=== PATIENT | female | born 1950 | race Caucasian/White ===

== ENCOUNTER → 2018-03-17 08:07 | Outpatient (CLI) | payer MEDICARE, BC, MEDICAID, SELFPAY ==
[2018-03-17 10:03] LABS: Hematocrit 39.4 % (37-47); Hemoglobin 12.8 g/dl (12.0-15.0); Lymphocyte % 19.2 % (19-41); Mean Corp Hgb Conc 32.5 g/gl (32-36); Mean Corpuscular Hgb 31.1 pg (27.0-32.0); Mean Corpuscular Volume 95.9 fL (81-99); Mean Platelet Vol. 10.9 fl (6.2-12.0); Neutrophil % 59.3 % (47-70); Platelet Count 242 K/mm3 (150-450); Red Blood Count 4.11 M/mm3 (4.2-5.4); White Blood Count 3.6 K/mm3 (4.4-11.0)
[2018-03-17 10:04] LABS: Absolute Lymphocyte Count 0.68 X10^3/ul (0.83-4.51); Absolute Neutrophil Count 2.1 X10^3/uL (2.0-7.7); Basophil# 0.05 X10^3/uL; Basophil% 1.4 % (0-1); Eosinophil# 0.46 X10^3/uL; Lymphocyte # 0.68 X10^3/ul (4.0); Monocyte# 0.24 X10^3/uL; Monocyte% 6.8 % (0-10); Neutrophil # 2.11 X10^3/uL (2.7-7.7)
[2018-03-17 10:05] LABS: POSITIVE COUNT NO; POSITIVE DIFFERENTIAL NO; POSITIVE MORPHOLOGY NO
[2018-03-17 10:23] LABS: AST(SGOT) 16 U/L (15-37); Alanine Aminotransfer ALT/SGPT 25 U/L (13-56); Albumin, Serum 3.7 g/dL (3.2-5.0); Alkaline Phosphatase 128 U/L (45-117); Anion Gap 5 (5-15); BUN 12 mg/dL (7-18); BUN/Creat Ratio 11.5 RATIO (10-20); Chloride 106 mmol/L (98-107); Creatinine, Serum 1.04 mg/dL (0.55-1.02); EST Glomerular Filtration Rate 56 mL/min (>60); Est Glom Filt Rate - Afr Amer 68 mL/min (>60); Globulin 3.8 g/dL (2.2-4.2); Glucose 84 mg/dL (74-106); Potassium 4.3 mmol/L (3.5-5.1); Protein, Total 7.5 g/dL (6.4-8.2); Sodium Level 140 mmol/L (136-145)
== END ==
PROVIDERS: Family Provider Family Medicine; PCP Family Medicine; Visit Provider Internal Medicine Rheumatology
DX: M32.9 Systemic lupus erythematosus, unspecified (principal); M18.0 Bilateral primary osteoarthritis of first carpometacarpal joints; M47.897 Other spondylosis, lumbosacral region; M41.9 Scoliosis, unspecified; I63.9 Cerebral infarction, unspecified
CPT/HCPCS: 36415; 80053; 85025

== ENCOUNTER → 2018-09-15 08:10 | Outpatient (CLI) | payer MEDICARE, BC, MEDICAID, SELFPAY ==
[2018-09-15 10:04] LABS: Absolute Lymphocyte Count 0.74 X10^3/ul (0.83-4.51); Basophil# 0.06 X10^3/uL; Basophil% 1.6 % (0-1); Eosinophil# 0.58 X10^3/uL; Eosinophils% 15.9 % (0-5); Hematocrit 40.1 % (37-47); Hemoglobin 13.1 g/dl (12.0-15.0); Lymphocyte # 0.74 X10^3/ul (4.0); Lymphocyte % 20.3 % (19-41); Mean Corp Hgb Conc 32.7 g/gl (32-36); Mean Corpuscular Hgb 31.3 pg (27.0-32.0); Mean Corpuscular Volume 95.7 fL (81-99); Mean Platelet Vol. 11.4 fl (6.2-12.0); Monocyte# 0.25 X10^3/uL; Monocyte% 6.9 % (0-10); Platelet Count 206 K/mm3 (150-450); RBC Distribution Width CV 11.9 % (11.6-14.6); RBC Distribution Width SD 40.9 fl (35.1-43.9); Red Blood Count 4.19 M/mm3 (4.2-5.4); White Blood Count 3.6 K/mm3 (4.4-11.0)
[2018-09-15 10:06] LABS: POSITIVE COUNT NO; POSITIVE DIFFERENTIAL NO; POSITIVE MORPHOLOGY NO
[2018-09-15 10:25] LABS: ALB/GLOB Ratio 1.1 RATIO (0.9-2.4); AST(SGOT) 13 U/L (15-37); Alanine Aminotransfer ALT/SGPT 18 U/L (13-56); Alkaline Phosphatase 92 U/L (45-117); BUN 14 mg/dL (7-18); BUN/Creat Ratio 13.3 RATIO (10-20); Calcium,Total 9.5 mg/dL (8.5-10.1); Creatinine, Serum 1.05 mg/dL (0.55-1.02); EST Glomerular Filtration Rate 56 mL/min (>60); Est Glom Filt Rate - Afr Amer 67 mL/min (>60); Globulin 3.8 g/dL (2.2-4.2); Glucose 94 mg/dL (74-106); Protein, Total 7.8 g/dL (6.4-8.2); Sodium Level 140 mmol/L (136-145)
[2018-09-15 10:26] LABS: Anion Gap 10 (5-15); Chloride 102 mmol/L (98-107); Potassium 4.3 mmol/L (3.5-5.1)
== END ==
PROVIDERS: Family Provider Family Medicine; PCP Family Medicine; Referring Provider Internal Medicine Rheumatology; Visit Provider Internal Medicine Rheumatology
DX: M32.9 Systemic lupus erythematosus, unspecified (principal); M18.0 Bilateral primary osteoarthritis of first carpometacarpal joints; M47.897 Other spondylosis, lumbosacral region; M41.9 Scoliosis, unspecified; I63.9 Cerebral infarction, unspecified
CPT/HCPCS: 36415; 80053; 85025

== ENCOUNTER 2019-02-12 12:46 | Emergency (ER) | payer MEDICARE, BC, MEDICAID, SELFPAY ==
[2019-02-12 12:47] VITALS: BP 128/80; PULSE 97; RESP 17; TEMP 36.8; O2SAT 97; BMI 26.6
--- NOTE | 2019-02-12 12:53 | ED.VIS.GEN ---
History of Present Illness Chief Complaint: Upper Extremity Injury Detail of Chief Complaint: Posterior left arm pain after raking leaves yesterday Informant: Patient Onset: Yesterday Context: Sudden Onset Timing: Continuous Quality: Aching Location: Posterior left arm Current Severity: Mild Maximum Severity: Moderate Worsened by: Palpation and movement Relieved by: Rest Associated Symptoms: None Narrative: Patient seen at urgent care and sent to the ER for cardiac concerns. Patient has no chest pain, no complaint of dyspnea, dyspnea on exertion, orthopnea PND. She has significant arthritis and has waxing waning pain in her extremities. This episode started after waking yesterday. She denies paresthesia, anesthesia or motor weakness. There is no history of direct trauma. Prior similar symptoms: No Recent Illness/Hospitalization: No - Past Medical History (1) Arthritis Status: Chronic Past Medical History - Allergies and Home Meds Allergies/Adverse Reactions: Allergies No Known Allergies Allergy (Verified 02/12/19 12:46) Primary Care Physician: Sd Garcia MD [Primary Care Provider] - Prior records reviewed: No Lives: Spouse/ Significant Other Smoking Status: Never smoker Review of Systems General: Denies: Chills, Fever, Sweats Cardiovascular: Denies: Chest pain, Palpitations, Heart racing, -, - Respiratory: Denies: Dyspnea, Cough, Sputum, Dyspnea on exertion, Orthopnea, Paroxysmal nocturnal dyspnea, -, - Gastrointestinal: Denies: Abdominal pain, Nausea, Vomiting, Diarrhea, Constipation, Melena, Hematochezia, -, - Musculoskeletal: Reports: Extremity Pain - Over the left tricep. Neurological: Denies: Weakness, Parasthesia, Numbness Hematologic: Denies: Easy bruising, Easy bleeding Physical Exam Vital Signs/Narrative: Vital Signs Temp Pulse Resp BP Pulse Ox 02/12/19 12:47 98.3 F 97 17 128/80 H 97 General: Well nourished, Well developed, No Acute Distress Cardiovascular: Regular rate, Regular rhythm, No murmurs, Normal S1, Normal S2 Respiratory: No distress, CTA bilaterally, Chest nontender Extremities: No edema, Tenderness - There is tenderness to palpation of the triceps muscle. There is no pain the patient of the left shoulder, left elbow or wrist. Radial pulses palpable. Having patient flex at the elbow causes no discomfort. Having her extend against resistance at the elbow causes minimal discomfort. This is where she is experiencing her pain. Skin: Normal color, No rash Neurological: Alert, Oriented x3, Cranial nerves II-XII grossly intact, Normal Strength, Normal Sensation, Normal DTR - Biceps, brachialis and triceps reflex are 1+ and symmetric. Psychological: Normal affect Diagnostic/Tx/Re-eval - Medical Decision Making Patient's history and physical exam is consistent with muscle skeletal pain. No diagnostic tests were done. ED Disposition - Plan for ED Patient: Disposition: Home or Assisted Living Diagnosis: Strain of left triceps muscle Instructions: ED Strain Muscle Ext Referrals: Sd Garcia MD [Primary Care Provider] - As Needed
[2019-02-12 13:11] VITALS: RESP 18; O2SAT 99
== END 2019-02-12 13:13 | disposition home or self-care (01) ==
LOC: ED 13:09
PROVIDERS: Emergency Provider Emergency Medicine; Family Provider Family Medicine; PCP Family Medicine
DX: S46.912A Strain of unspecified muscle, fascia and tendon at shoulder and upper arm level, left arm, initial encounter (principal); X58.XXXA Exposure to other specified factors, initial encounter; Y93.9 Activity, unspecified; Y92.89 Other specified places as the place of occurrence of the external cause; Y99.9 Unspecified external cause status; M19.90 Unspecified osteoarthritis, unspecified site
CPT/HCPCS: 99282

== ENCOUNTER → 2019-03-10 07:35 | Outpatient (CLI) | payer MEDICARE, BC, MEDICAID, SELFPAY ==
[2019-02-12 12:47] VITALS: BMI 26.6
[2019-03-10 10:37] LABS: Absolute Lymphocyte Count 0.72 X10^3/ul (0.83-4.51); Absolute Neutrophil Count 1.7 X10^3/uL (2.0-7.7); Basophil# 0.04 X10^3/uL; Basophil% 1.4 % (0-1); Eosinophil# 0.27 X10^3/uL; Eosinophils% 9.3 % (0-5); Hematocrit 39.6 % (37-47); Hemoglobin 12.9 g/dl (12.0-15.0); Lymphocyte # 0.72 X10^3/ul (4.0); Lymphocyte % 24.8 % (19-41); Mean Corp Hgb Conc 32.6 g/gl (32-36); Mean Corpuscular Hgb 30.9 pg (27.0-32.0); Mean Platelet Vol. 11.7 fl (6.2-12.0); Monocyte# 0.21 X10^3/uL; Monocyte% 7.2 % (0-10); Neutrophil # 1.66 X10^3/uL (2.7-7.7); Neutrophil % 57.3 % (47-70); Platelet Count 202 K/mm3 (150-450); RBC Distribution Width CV 12.4 % (11.6-14.6); RBC Distribution Width SD 42.4 fl (35.1-43.9); Red Blood Count 4.17 M/mm3 (4.2-5.4); White Blood Count 2.9 K/mm3 (4.4-11.0)
[2019-03-10 10:38] LABS: POSITIVE COUNT NO; POSITIVE DIFFERENTIAL NO; POSITIVE MORPHOLOGY NO
[2019-03-10 10:42] LABS: AST(SGOT) 18 U/L (15-37); Alanine Aminotransfer ALT/SGPT 21 U/L (13-56); Albumin, Serum 3.9 g/dL (3.2-5.0); Alkaline Phosphatase 101 U/L (45-117); Anion Gap 8 (5-15); BUN 13 mg/dL (7-18); BUN/Creat Ratio 12.7 RATIO (10-20); Calcium,Total 9.1 mg/dL (8.5-10.1); Chloride 103 mmol/L (98-107); Creatinine, Serum 1.02 mg/dL (0.55-1.02); EST Glomerular Filtration Rate 57 mL/min (>60); Est Glom Filt Rate - Afr Amer 69 mL/min (>60); Globulin 3.9 g/dL (2.2-4.2); Glucose 88 mg/dL (74-106); Potassium 4.1 mmol/L (3.5-5.1); Protein, Total 7.8 g/dL (6.4-8.2); Sodium Level 140 mmol/L (136-145)
== END ==
PROVIDERS: Family Provider Family Medicine; PCP Family Medicine; Referring Provider Internal Medicine Rheumatology; Visit Provider Internal Medicine Rheumatology
DX: M32.9 Systemic lupus erythematosus, unspecified (principal); M18.0 Bilateral primary osteoarthritis of first carpometacarpal joints; M47.897 Other spondylosis, lumbosacral region; M41.9 Scoliosis, unspecified; I63.9 Cerebral infarction, unspecified
CPT/HCPCS: 36415; 80053; 85025

== ENCOUNTER → 2019-09-03 09:07 | Outpatient (CLI) | payer MEDICARE, BC, MEDICAID, SELFPAY ==
[2019-09-03 10:23] LABS: Absolute Lymphocyte Count 0.64 X10^3/uL (0.83-4.51); Absolute Neutrophil Count 1.5 X10^3/uL (2.0-7.7); Basophil# 0.06 X10^3/uL; Basophil% 2.1 % (0-1); Hematocrit 38.8 % (37-47); Hemoglobin 12.9 g/dL (12.0-15.0); Lymphocyte # 0.64 X10^3/ul (4.0); Lymphocyte % 22.4 % (19-41); Mean Corp Hgb Conc 33.2 g/dL (32-36); Mean Corpuscular Hgb 31.9 pg (27.0-32.0); Monocyte# 0.22 X10^3/uL; Monocyte% 7.7 % (0-10); NRBC Flagged by Analyzer 0 % (0-5); Neutrophil # 1.54 X10^3/uL (2.7-7.7); Neutrophil % 53.8 % (47-70); Platelet Count 180 K/mm3 (150-450); RBC Distribution Width CV 12.1 % (11.6-14.6); RBC Distribution Width SD 42.6 fl (35.1-43.9); Red Blood Count 4.04 M/mm3 (4.2-5.4); White Blood Count 2.9 K/mm3 (4.4-11.0)
[2019-09-03 10:51] LABS: ALB/GLOB Ratio 1.1 RATIO (0.9-2.4); AST(SGOT) 16 U/L (15-37); Alanine Aminotransfer ALT/SGPT 22 U/L (13-56); Albumin, Serum 3.9 g/dL (3.2-5.0); Alkaline Phosphatase 89 U/L (45-117); Anion Gap 6 (5-15); BUN 16 mg/dL (7-18); BUN/Creat Ratio 16.2 RATIO (10-20); Chloride 104 mmol/L (98-107); Creatinine, Serum 0.99 mg/dL (0.55-1.02); EST Glomerular Filtration Rate 59 mL/min (>60); Est Glom Filt Rate - Afr Amer 72 mL/min (>60); Globulin 3.7 g/dL (2.2-4.2); Glucose 88 mg/dL (74-106); Protein, Total 7.6 g/dL (6.4-8.2); Sodium Level 139 mmol/L (136-145)
== END ==
PROVIDERS: Family Provider Family Medicine; PCP Family Medicine; Referring Provider Internal Medicine Rheumatology; Visit Provider Internal Medicine Rheumatology
DX: M32.9 Systemic lupus erythematosus, unspecified (principal); M18.0 Bilateral primary osteoarthritis of first carpometacarpal joints; M47.897 Other spondylosis, lumbosacral region; M41.9 Scoliosis, unspecified; Z86.73 Personal history of transient ischemic attack (TIA), and cerebral infarction without residual deficits
CPT/HCPCS: 36415; 80053; 85025

== ENCOUNTER → 2019-12-21 08:02 | Outpatient (CLI) | payer MEDICARE, BC, SELFPAY ==
[2019-12-21 10:28] LABS: Absolute Lymphocyte Count 0.69 X10^3/uL (0.83-4.51); Absolute Neutrophil Count 1.5 X10^3/uL (2.0-7.7); Basophil# 0.05 X10^3/uL; Basophil% 1.7 % (0-1); Eosinophil# 0.42 X10^3/uL; Eosinophils% 14.7 % (0-5); Hematocrit 38.3 % (37-47); Hemoglobin 12.5 g/dL (12.0-15.0); Lymphocyte # 0.69 X10^3/ul (4.0); Lymphocyte % 24.1 % (19-41); Mean Corp Hgb Conc 32.6 g/dL (32-36); Mean Corpuscular Hgb 31.1 pg (27.0-32.0); Mean Corpuscular Volume 95.3 fL (81-99); Mean Platelet Vol. 11.7 fl (6.2-12.0); Monocyte# 0.25 X10^3/uL; Monocyte% 8.7 % (0-10); NRBC Flagged by Analyzer 0 % (0-5); Neutrophil # 1.45 X10^3/uL (2.7-7.7); Neutrophil % 50.8 % (47-70); Platelet Count 184 K/mm3 (150-450); RBC Distribution Width CV 11.7 % (11.6-14.6); RBC Distribution Width SD 40.5 fl (35.1-43.9); Red Blood Count 4.02 M/mm3 (4.2-5.4); White Blood Count 2.9 K/mm3 (4.4-11.0)
[2019-12-21 10:41] LABS: ALB/GLOB Ratio 1.2 RATIO (0.9-2.4); AST(SGOT) 17 U/L (15-37); Alanine Aminotransfer ALT/SGPT 20 U/L (13-56); Albumin, Serum 3.9 g/dL (3.2-5.0); Alkaline Phosphatase 83 U/L (45-117); Anion Gap 3 (5-15); BUN 18 mg/dL (7-18); BUN/Creat Ratio 17.8 RATIO (10-20); Calcium,Total 9.3 mg/dL (8.5-10.1); Chloride 106 mmol/L (98-107); Creatinine, Serum 1.01 mg/dL (0.55-1.02); EST Glomerular Filtration Rate 58 mL/min (>60); Est Glom Filt Rate - Afr Amer 70 mL/min (>60); Globulin 3.3 g/dL (2.2-4.2); Glucose 90 mg/dL (74-106); Protein, Total 7.2 g/dL (6.4-8.2); Sodium Level 138 mmol/L (136-145)
== END ==
PROVIDERS: PCP Family Medicine; Referring Provider Internal Medicine Rheumatology; Visit Provider Internal Medicine Rheumatology
DX: M32.9 Systemic lupus erythematosus, unspecified (principal); M18.0 Bilateral primary osteoarthritis of first carpometacarpal joints; M47.897 Other spondylosis, lumbosacral region; M41.9 Scoliosis, unspecified; Z86.73 Personal history of transient ischemic attack (TIA), and cerebral infarction without residual deficits
CPT/HCPCS: 36415; 80053; 85025

== ENCOUNTER → 2020-03-21 07:55 | Outpatient (CLI) | payer MEDICARE, BC, SELFPAY ==
[2020-03-21 10:01] LABS: Absolute Lymphocyte Count 0.68 X10^3/uL (0.83-4.51); Absolute Neutrophil Count 1.8 X10^3/uL (2.0-7.7); Basophil# 0.05 X10^3/uL; Basophil% 1.6 % (0-1); Eosinophil# 0.39 X10^3/uL; Eosinophils% 12.3 % (0-5); Hematocrit 38.7 % (37-47); Hemoglobin 12.5 g/dL (12.0-15.0); Lymphocyte # 0.68 X10^3/ul (4.0); Lymphocyte % 21.5 % (19-41); Mean Corp Hgb Conc 32.3 g/dL (32-36); Mean Corpuscular Hgb 30.6 pg (27.0-32.0); Mean Corpuscular Volume 94.6 fL (81-99); Mean Platelet Vol. 11.3 fl (6.2-12.0); Monocyte# 0.25 X10^3/uL; Monocyte% 7.9 % (0-10); NRBC Flagged by Analyzer 0 % (0-5); Neutrophil % 56.7 % (47-70); Platelet Count 191 K/mm3 (150-450); RBC Distribution Width CV 11.7 % (11.6-14.6); RBC Distribution Width SD 40.5 fl (35.1-43.9); Red Blood Count 4.09 M/mm3 (4.2-5.4); White Blood Count 3.2 K/mm3 (4.4-11.0)
[2020-03-21 10:18] LABS: ALB/GLOB Ratio 1.1 RATIO (0.9-2.4); AST(SGOT) 19 U/L (15-37); Alanine Aminotransfer ALT/SGPT 22 U/L (13-56); Albumin, Serum 3.8 g/dL (3.2-5.0); Alkaline Phosphatase 88 U/L (45-117); Anion Gap 6 (5-15); BUN 16 mg/dL (7-18); BUN/Creat Ratio 15.2 RATIO (10-20); Chloride 105 mmol/L (98-107); Creatinine, Serum 1.05 mg/dL (0.55-1.02); EST Glomerular Filtration Rate 55 mL/min (>60); Est Glom Filt Rate - Afr Amer 67 mL/min (>60); Globulin 3.6 g/dL (2.2-4.2); Glucose 87 mg/dL (74-106); Potassium 3.7 mmol/L (3.5-5.1); Protein, Total 7.4 g/dL (6.4-8.2); Sodium Level 139 mmol/L (136-145)
== END ==
PROVIDERS: PCP Family Medicine; Referring Provider Internal Medicine Rheumatology; Visit Provider Internal Medicine Rheumatology
DX: M32.9 Systemic lupus erythematosus, unspecified (principal); M18.0 Bilateral primary osteoarthritis of first carpometacarpal joints; M47.897 Other spondylosis, lumbosacral region; M41.9 Scoliosis, unspecified; Z86.73 Personal history of transient ischemic attack (TIA), and cerebral infarction without residual deficits
CPT/HCPCS: 36415; 80053; 85025

== ENCOUNTER → 2020-09-19 08:46 | Outpatient (CLI) | payer MEDICARE, BC, SELFPAY ==
[2020-09-19 10:02] LABS: Absolute Lymphocyte Count 0.78 X10^3/uL (0.83-4.51); Absolute Neutrophil Count 1.7 X10^3/uL (2.0-7.7); Basophil# 0.05 X10^3/uL; Basophil% 1.5 % (0-1); Eosinophil# 0.47 X10^3/uL; Eosinophils% 14.6 % (0-5); Hematocrit 41.5 % (37-47); Hemoglobin 13.4 g/dL (12.0-15.0); Lymphocyte # 0.78 X10^3/ul (4.0); Lymphocyte % 24.1 % (19-41); Mean Corp Hgb Conc 32.3 g/dL (32-36); Mean Corpuscular Hgb 30.7 pg (27.0-32.0); Mean Corpuscular Volume 95.2 fL (81-99); Mean Platelet Vol. 11.7 fl (6.2-12.0); Monocyte# 0.28 X10^3/uL; Monocyte% 8.7 % (0-10); NRBC Flagged by Analyzer 0 % (0-5); Neutrophil # 1.65 X10^3/uL (2.7-7.7); Neutrophil % 51.1 % (47-70); Platelet Count 188 K/mm3 (150-450); RBC Distribution Width CV 11.7 % (11.6-14.6); RBC Distribution Width SD 40.6 fl (35.1-43.9); Red Blood Count 4.36 M/mm3 (4.2-5.4); White Blood Count 3.2 K/mm3 (4.4-11.0)
[2020-09-19 10:37] LABS: ALB/GLOB Ratio 1.1 RATIO (0.9-2.4); AST(SGOT) 16 U/L (15-37); Alanine Aminotransfer ALT/SGPT 17 U/L (13-56); Alkaline Phosphatase 89 U/L (45-117); Anion Gap 8 (5-15); BUN 13 mg/dL (7-18); Calcium,Total 9.4 mg/dL (8.5-10.1); Chloride 106 mmol/L (98-107); Creatinine, Serum 1.08 mg/dL (0.55-1.02); EST Glomerular Filtration Rate 53 mL/min (>60); Est Glom Filt Rate - Afr Amer 65 mL/min (>60); Globulin 3.6 g/dL (2.2-4.2); Glucose 101 mg/dL (74-106); Protein, Total 7.6 g/dL (6.4-8.2); Sodium Level 140 mmol/L (136-145)
== END ==
PROVIDERS: PCP Family Medicine; Referring Provider Internal Medicine Rheumatology; Visit Provider Internal Medicine Rheumatology
DX: M32.9 Systemic lupus erythematosus, unspecified (principal); M06.4 Inflammatory polyarthropathy; M18.0 Bilateral primary osteoarthritis of first carpometacarpal joints; M47.897 Other spondylosis, lumbosacral region; M41.9 Scoliosis, unspecified; Z86.73 Personal history of transient ischemic attack (TIA), and cerebral infarction without residual deficits
CPT/HCPCS: 36415; 80053; 85025

== ENCOUNTER → 2020-12-06 08:24 | Outpatient (CLI) | payer MEDICARE, BC, SELFPAY ==
[2020-12-06 09:55] LABS: Color, Urine Yellow (Yellow); Glucose, Dipstick Normal (Normal); Ketone-Dipstick 5 mg/dl (Negative); Leukocyte Esterase-Dipstick 500 /ul (Negative); Nitrite-Dipstick Negative (Negative); Occult Blood-Urine 50 /ul (Negative); Protein-Dipstick 15 mg/dl (Negative); Specific Gravity, Urine 1.025 (1.002-1.030); Urine Bilirubin Dipstick Negative (Negative); Urine Clarity Sl. Cloudy (Clear); Urine Urobilinogen Normal (Normal)
[2020-12-06 10:13] LABS: Absolute Lymphocyte Count 0.74 X10^3/uL (0.83-4.51); Absolute Neutrophil Count 3.1 X10^3/uL (2.0-7.7); Basophil# 0.05 X10^3/uL; Basophil% 1.1 % (0-1); Eosinophil# 0.23 X10^3/uL; Eosinophils% 5.2 % (0-5); Hematocrit 38.7 % (37-47); Lymphocyte # 0.74 X10^3/ul (4.0); Lymphocyte % 16.7 % (19-41); Mean Corp Hgb Conc 33.6 g/dL (32-36); Mean Corpuscular Hgb 31.4 pg (27.0-32.0); Mean Corpuscular Volume 93.5 fL (81-99); Mean Platelet Vol. 11.4 fl (6.2-12.0); Monocyte# 0.32 X10^3/uL; Monocyte% 7.2 % (0-10); NRBC Flagged by Analyzer 0 % (0-5); Neutrophil # 3.08 X10^3/uL (2.7-7.7); Neutrophil % 69.6 % (47-70); Platelet Count 200 K/mm3 (150-450); RBC Distribution Width CV 11.8 % (11.6-14.6); RBC Distribution Width SD 40.1 fl (35.1-43.9); Red Blood Count 4.14 M/mm3 (4.2-5.4); White Blood Count 4.4 K/mm3 (4.4-11.0)
[2020-12-06 10:16] LABS: ALB/GLOB Ratio 1.1 RATIO (0.9-2.4); AST(SGOT) 19 U/L (15-37); Alanine Aminotransfer ALT/SGPT 20 U/L (13-56); Albumin, Serum 3.9 g/dL (3.2-5.0); Alkaline Phosphatase 95 U/L (45-117); Anion Gap 7 (5-15); BUN 12 mg/dL (7-18); BUN/Creat Ratio 11.3 RATIO (10-20); Calcium,Total 8.7 mg/dL (8.5-10.1); Chloride 104 mmol/L (98-107); Creatinine, Serum 1.06 mg/dL (0.55-1.02); EST Glomerular Filtration Rate 55 mL/min (>60); Est Glom Filt Rate - Afr Amer 66 mL/min (>60); Globulin 3.6 g/dL (2.2-4.2); Glucose 94 mg/dL (74-106); Potassium 3.8 mmol/L (3.5-5.1); Protein, Total 7.5 g/dL (6.4-8.2); Sodium Level 137 mmol/L (136-145)
[2020-12-06 10:25] LABS: Protein, Urine (Random) 30.3 mg/dL (<11.9); Protein:Creat Ratio 109 mg/g CRE (0-200)
== END ==
PROVIDERS: PCP Family Medicine; Referring Provider Internal Medicine Rheumatology; Visit Provider Internal Medicine Rheumatology
DX: M32.9 Systemic lupus erythematosus, unspecified (principal); M06.4 Inflammatory polyarthropathy; M18.0 Bilateral primary osteoarthritis of first carpometacarpal joints; M47.897 Other spondylosis, lumbosacral region; M41.9 Scoliosis, unspecified; Z86.73 Personal history of transient ischemic attack (TIA), and cerebral infarction without residual deficits
CPT/HCPCS: 36415; 80053; 81002; 82570; 84156; 85025

== ENCOUNTER → 2021-05-30 07:53 | Outpatient (CLI) | payer MEDICARE, BC, SELFPAY ==
[2021-05-30 10:23] LABS: Absolute Lymphocyte Count 0.89 X10^3/uL (0.83-4.51); Absolute Neutrophil Count 1.6 X10^3/uL (2.0-7.7); Basophil# 0.05 X10^3/uL; Basophil% 1.6 % (0-1); Eosinophil# 0.23 X10^3/uL; Eosinophils% 7.4 % (0-5); Hematocrit 41.4 % (37-47); Lymphocyte # 0.89 X10^3/ul (0.83-4.51); Lymphocyte % 28.7 % (19-41); Mean Corp Hgb Conc 31.4 g/dL (32-36); Mean Corpuscular Hgb 30.5 pg (27.0-32.0); Mean Corpuscular Volume 97.2 fL (81-99); Monocyte# 0.31 X10^3/uL; NRBC Flagged by Analyzer 0 % (0-5); Neutrophil # 1.61 X10^3/uL (2.7-7.7); Platelet Count 209 K/mm3 (150-450); RBC Distribution Width CV 12.2 % (11.6-14.6); RBC Distribution Width SD 43.9 fl (35.1-43.9); Red Blood Count 4.26 M/mm3 (4.2-5.4); White Blood Count 3.1 K/mm3 (4.4-11.0)
[2021-05-30 11:11] LABS: ALB/GLOB Ratio 1.1 RATIO (0.9-2.4); AST(SGOT) 18 U/L (15-37); Alanine Aminotransfer ALT/SGPT 22 U/L (13-56); Albumin, Serum 3.8 g/dL (3.2-5.0); Alkaline Phosphatase 86 U/L (45-117); Anion Gap 5 (5-15); BUN 13 mg/dL (7-18); BUN/Creat Ratio 12.9 RATIO (10-20); Calcium,Total 8.9 mg/dL (8.5-10.1); Chloride 105 mmol/L (98-107); Creatinine, Serum 1.01 mg/dL (0.55-1.02); EST Glomerular Filtration Rate 58 mL/min (>60); Est Glom Filt Rate - Afr Amer 70 mL/min (>60); Globulin 3.4 g/dL (2.2-4.2); Glucose 90 mg/dL (74-106); Potassium 4.1 mmol/L (3.5-5.1); Protein, Total 7.2 g/dL (6.4-8.2); Sodium Level 137 mmol/L (136-145)
== END ==
PROVIDERS: PCP Family Medicine; Referring Provider Internal Medicine Rheumatology; Visit Provider Internal Medicine Rheumatology
DX: M32.9 Systemic lupus erythematosus, unspecified (principal); M06.4 Inflammatory polyarthropathy; M18.0 Bilateral primary osteoarthritis of first carpometacarpal joints; M47.897 Other spondylosis, lumbosacral region; M41.9 Scoliosis, unspecified; I63.9 Cerebral infarction, unspecified
CPT/HCPCS: 36415; 80053; 85025

== ENCOUNTER 2021-11-20 08:13 | Outpatient (CLI) | payer MEDICARE, SELFPAY ==
[2021-11-20 10:13] LABS: Absolute Neutrophil Count 3.2 X10^3/uL (2.0-7.7); Basophil# 0.06 X10^3/uL; Basophil% 1.2 % (0-1); Eosinophil# 0.11 X10^3/uL; Eosinophils% 2.2 % (0-5); Hematocrit 42.4 % (37-47); Hemoglobin 13.9 g/dL (12.0-15.0); Lymphocyte % 24.3 % (19-41); Mean Corp Hgb Conc 32.8 g/dL (32-36); Mean Corpuscular Hgb 31.3 pg (27.0-32.0); Mean Corpuscular Volume 95.5 fL (81-99); Mean Platelet Vol. 11.4 fl (6.2-12.0); Monocyte# 0.36 X10^3/uL; Monocyte% 7.3 % (0-10); NRBC Flagged by Analyzer 0 % (0-5); Neutrophil # 3.15 X10^3/uL (2.7-7.7); Platelet Count 236 K/mm3 (150-450); RBC Distribution Width CV 12.1 % (11.6-14.6); RBC Distribution Width SD 41.8 fl (35.1-43.9); Red Blood Count 4.44 M/mm3 (4.2-5.4); White Blood Count 4.9 K/mm3 (4.4-11.0)
[2021-11-20 10:21] LABS: Color, Urine Yellow (Yellow); Glucose, Dipstick Normal (Normal); Ketone-Dipstick Negative (Negative); Leukocyte Esterase-Dipstick 500 /ul (Negative); Nitrite-Dipstick Negative (Negative); Occult Blood-Urine 50 /ul (Negative); Protein-Dipstick 15 mg/dl (Negative); Urine Bilirubin Dipstick Negative (Negative); Urine Clarity Sl. Cloudy (Clear); Urine Urobilinogen Normal (Normal)
[2021-11-20 10:50] LABS: ALB/GLOB Ratio 0.9 RATIO (0.9-2.4); AST(SGOT) 12 U/L (15-37); Alanine Aminotransfer ALT/SGPT 22 U/L (13-56); Albumin, Serum 3.5 g/dL (3.2-5.0); Alkaline Phosphatase 89 U/L (45-117); Anion Gap 6 (5-15); BUN 17 mg/dL (7-18); BUN/Creat Ratio 18.6 RATIO (10-20); Chloride 105 mmol/L (98-107); Creatinine, Serum 0.92 mg/dL (0.55-1.02); EST Glomerular Filtration Rate 65 mL/min (>60); Est Glom Filt Rate - Afr Amer 78 mL/min (>60); Globulin 3.8 g/dL (2.2-4.2); Glucose 92 mg/dL (74-106); Potassium 3.9 mmol/L (3.5-5.1); Protein, Total 7.3 g/dL (6.4-8.2); Sodium Level 139 mmol/L (136-145)
[2021-11-20 11:01] LABS: Protein, Urine (Random) 36.3 mg/dL (<11.9); Protein:Creat Ratio 184 mg/g CRE (0-200)
== END 2021-11-20 23:59 | disposition home or self-care (01) ==
LOC: MTLAB 08:16
PROVIDERS: PCP Family Medicine; Referring Provider Internal Medicine Rheumatology; Visit Provider Internal Medicine Rheumatology
DX: M32.9 Systemic lupus erythematosus, unspecified (principal); M06.4 Inflammatory polyarthropathy; M18.0 Bilateral primary osteoarthritis of first carpometacarpal joints; M47.897 Other spondylosis, lumbosacral region; M41.9 Scoliosis, unspecified; Z86.73 Personal history of transient ischemic attack (TIA), and cerebral infarction without residual deficits
CPT/HCPCS: 36415; 80053; 81002; 82570; 84156; 85025

== ENCOUNTER → 2023-11-29 | Outpatient (CLI) | payer MEDICARE, BC, SELFPAY ==
--- NOTE | 2023-11-29 09:52 | VDLE_ITS ---
Reason For Study: Pain in left leg RIGHT LEFT CFV is compressible, spontaneous, phasic, GSV is normal. competent and demonstrates normal CFV is compressible, spontaneous, phasic, augmentation. competent, and demonstrates normal Procedure augmentation. This is a venous duplex using B-mode, color FV is compressible, spontaneous, phasic, flow and spectral Doppler. competent and demonstrates normal Exam performed in department. augmentation. A preliminary report was called and/or faxed POP V is compressible, spontaneous, phasic, to [employer]ee [employer]. competent and demonstrates normal augmentation. T/P Trunk is compressible. PTV is compressible. LT PerV is compressible. VL/Venous Duplex US, Unilateral Interpretation Summary There is no evidence of left lower extremity deep vein thrombosis. Left great s aphenous vein appears patent and compressible segmentally. Normal flow patterns right common femoral vein Ordering Physician: Kelsy Sweet Referring Physician: MD Radha Sd Performed By: Leigha Tom RVT
--- OUTSIDE RECORDS SUMMARY | 2023-11-29 10:28 | XMS RPT_ITS | CCD ---
Author Name Unknown Address [address] [place] [address] Organization [facility] Care Team Providers Care Foamite Mixer Name Role Phone Migdalia Tena MD Primary Care Provider DAMIEN DILLARD Attending Unavailable IGJACKIE, DAMIEN PRYOR Referring Unavailable ELDERJESSICA, MIGDALIA Primary Care Unavailable IGJACKIE, DAMIEN PRYOR Attending Unavailable IGJACKIE, DAMIEN PRYOR Referring Unavailable ELDERJESSICA, MIGDALIA Primary Care Unavailable ELDERJESSICA, MIGDALIA Primary Care Unavailable MIGDALIA TENA Admitting Unavailable IGJACKIE, DAMIEN PRYOR Attending Unavailable MIGDALIA TENA Referring Unavailable ELDERJESSICA, MIGDALIA Primary Care Unavailable IGJACKIE, DAMIEN PRYOR Attending Unavailable DARINEL, MIGDALIA Primary Care Unavailable IGJACKIE, DAMIEN PRYOR Attending Unavailable DARINEL, MIGDALIA Primary Care Unavailable IGJACKIE, DAMIEN PRYOR Attending Unavailable DARINEL, MIGDALIA Primary Care Unavailable Migdalia Tena MD Primary Care Provider MIGDALIA TENA Primary Care Unavailable MIGDALIA TENA Referring Unavailable MIGDALIA TENA Primary Care Unavailable MIGDALIA TENA Attending Unavailable MIGDALIA TENA Primary Care Unavailable MIGDALIA TENA Referring Unavailable MAO SWEET Attending Unavailable MIGDALIA TENA Primary Care Unavailable MIGDALIA TENA Primary Care Unavailable MAO SWEET Attending Unavailable ANNIA CORREIA Attending Unavailab le MIGDALIA TENA Primary Care Unavailable MIGDALIA TENA Primary Care Unavailable MAO SWEET Attending Unavailable MIGDALIA TENA Attending Unavailable MIGDALIA TENA Primary Care Unavailable MIGDALIA TENA Referring Unavailable MIGDALIA TENA Primary Care Unavailable MIGDALIA TENA Referring Unavailable MIGDALIA TENA Primary Care Unavailable MAO SWEET Referring Unavailable MIGDALIA TENA Primary Care Unavailable MIGDALIA TENA Primary Care Unavailable MAO SWEET Attending Unavailable Medications Current Medications Medication Drug Class(es) Dates Sig (Normalized) Sig (Original) alendronic acid 70 mg oral tablet (9 sources) Bisphosphonate Start: 07-09-2023 End: 07-08-2024 alendronate (FOSAMAX) 70 MG tablet Indications: Age-related osteoporosis without current pathological fracture Take 1 (one) tablet (70 mg total) by mouth every 7 days (full glass of water on an empty stomach). Remain upright and do not eat for next 30 min . 12 tablet 3 07/09/2023 07/08/2024 Active Completed/Discontinued Medications Medication Drug Class(es) Dates Sig (Normalized) Sig (Original) atorvastatin 40 mg oral tablet (20 sources) HMG-CoA Reductase Inhibitor Start: 12-17-2022 take 1 tablet by mouth once daily atorvastatin (LIPITOR) 40 mg tablet Indications: Mixed hyperlipidemia Take 1 tablet by mouth once daily. 30 tablet 11 12/27/2022 Active Problems Active Problems Problem Classification Problem Date Documented Date Episodic/Chronic Disorders of lipid metabolism (20 sources) Hyperlipidemia; Translations: [Hyperlipidemia, unspecified] Onset: 10-08-2016 10-08-2016 Chronic Esophageal disorders (20 sources) Gastroesophageal reflux disease; Translations: [Gastro-esophageal reflux disease without esophagitis] Onset: 06-04-2006 06-04-2006 Chronic Essential hypertension (20 sources) Essential hypertension; Translations: [Essential (primary) hypertension] Onset: 12-13-2017 12-13-2017 Chronic Nutritional deficiencies (5 sources) 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; Translations: [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] Onset: 01-07-2023 Chronic Osteoarthritis (20 sources) Arthritis of joint of left shoulder region; Translations: [Primary osteoarthritis, left shoulder] Onset: 06-12-2018 06-12-2018 Chronic Osteoporosis (20 sources) Osteoporosis; Translations: [Age-related osteoporosis without current pathological fracture] Onset: 10-01-2013 10-01-2013 Chronic Other aftercare (2 sources) Drug therapy finding; Translations: [Other detention (current) drug therapy] Episodic Other and ill-defined cerebrovascular disease (20 sources) Cerebrovascular disease; Translations: [Other cerebrovascular disease] Onset: 11-06-2007 12-15-2018 Chronic Other and ill-defined cerebrovascular disease (20 sources) 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; Translations: [Cerebral aneurysm, nonruptured] Onset: 07-26-2021 07-26-2021 Chronic Other and ill-defined cerebrovascular disease (1 source) Cerebral aneurysm, nonruptured; Translations: [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] Onset: 07-26-2021 Chronic Other bone disease and musculoskeletal deformities (1 source) Costal chondritis; Translations: [Chondrocostal junction syndrome [Tietze]] 10-23-2023 Episodic Other bone disease and musculoskeletal deformities (1 source) Chondrocostal junction syndrome [Tietze]; Translations: [Costochondritis] Onset: 10-23-2023 Episodic Other connective tissue disease (2 sources) Pain of left calf; Translations: [Pain in left lower leg] Episodic Other connective tissue disease (2 sources) Trochanteric bursitis of left hip; Translations: [Trochanteric bursitis, left hip] Episodic Other connective tissue disease (1 source) Pain in left lower leg; Translations: [Pain of left calf] Onset: 11-22-2023 Episodic Other ear and sense organ disorders (1 source) Impacted cerumen in right ear; Translations: [Impacted cerumen, right ear] Episodic Other ear and sense organ disorders (1 source) Otalgia, left ear; Translations: [Otalgia, unspecified] Episodic Other inflammatory condition of skin (20 sources) Lupus erythematosus; Translations: [Discoid lupus erythematosus] Onset: 01-31-2009 01-31-2009 Chronic Spondylosis; intervertebral disc disorders; other back problems (1 source) Neck pain; Translations: [Cervicalgia] Episodic Systemic lupus erythematosus and connective tissue disorders (4 sources) Systemic lupus erythematosus, unspecified; Translations: [Systemic lupus erythematosus, unspecified] Onset: 01-07-2023 Chronic Urinary tract infections (3 sources) Acute cystitis; Translations: [Acute cystitis with hematuria] Onset: 09-06-2023 09-06-2023 Episodic Past or Other Problems Problem Classification Problem Date Documented Date Episodic/Chronic Disorders of teeth and jaw (20 sources) Temporomandibular joint disorder; Translations: [Unspecified temporomandibular joint disorder, unspecified side] Onset: 07-30-2006 07-30-2006 Episodic Other aftercare (2 sources) Other long term care administrator (current) drug therapy; Translations: [Other long term care administrator (current) drug therapy] Onset: 01-07-2023 Episodic Other connective tissue disease (20 sources) Pain in limb; Translations: [Pain in unspecified limb] Onset: 03-03-2012 03-03-2012 Episodic Other connective tissue disease (2 sources) Trochanteric bursitis, left hip; Translations: [Trochanteric bursitis, left hip] Onset: 01-07-2023 Episodic Other screening for suspected conditions (not mental disorders or infectious disease) (13 sources) Patient encounter status; Translations: [Encounter for screening mammogram for malignant neoplasm of breast] Onset: 01-07-2023 Episodic Results Test Name Value Interpretation Reference Range Facil ity Vital Signs Date Time Vital Sign Value Performing Clinician Faci lity 10-23-2023 16:02-0500 Heart rate 100 /min Annia Correia MD Work Phone: [facility] 10-23-2023 15:49-0500 Body temperature 98.4 [degF] Annia Correia MD Work Phone: [facility] 10-23-2023 15:49-0500 Body weight 72.58 kg Annia Correia MD Work Phone: [facility] 10-23-2023 15:49-0500 Diastolic blood pressure 80 mm[Hg] Annia Correia MD Work Phone: [facility] 10-23-2023 15:49-0500 Respiratory rate 16 /min Annia Correia MD Work Phone: [facility] 10-23-2023 15:49-0500 SaO2% (BldA) [Mass fraction] 97 % Annia Correia MD Work Phone: [facility] 10-23-2023 15:49-0500 Systolic blood pressure 104 mm[Hg] Annia Correia MD Work Phone: [facility] 09-06-2023 13:38-0400 Body weight 71.22 kg Mao Sweet APRN.CNP Work Phone: [facility] 09-06-2023 13:38-0400 Diastolic blood pressure 64 mm[Hg] Mao Tannhof SEARCH SPECIALIST.INVESTIGATION DIVISION CAPTAIN Work Phone: [facility] 09-06-2023 13:38-0400 Heart rate 87 /min Mao Lasthof SEARCH SPECIALIST.INVESTIGATION DIVISION CAPTAIN Work Phone: [facility] 09-06-2023 13:38-0400 Respiratory rate 16 /min Mao Lasthof SEARCH SPECIALIST.INVESTIGATION DIVISION CAPTAIN Work Phone: [facility] 09-06-2023 13:38-0400 SaO2% (BldA) [Mass fraction] 98 % Mao Tannhof SEARCH SPECIALIST.INVESTIGATION DIVISION CAPTAIN Work Phone: [facility] 09-06-2023 13:38-0400 Systolic blood pressure 104 mm[Hg] Mao Lasthof SEARCH SPECIALIST.INVESTIGATION DIVISION CAPTAIN Work Phone: [facility] 08-15-2023 14:42-0400 Body weight 71.08 kg Migdalia Tena MD Work Phone: [facility] 08-15-2023 14:42-0400 Diastolic blood pressure 70 mm[Hg] Migdalia Tena MD Work Phone: [facility] 08-15-2023 14:42-0400 Heart rate 80 /min Migdalia Tena MD Work Phone: [facility] 08-15-2023 14:42-0400 Respiratory rate 16 /min Migdalia Tena MD Work Phone: [facility] 08-15-2023 14:42-0400 Systolic blood pressure 110 mm[Hg] Migdalia Tena MD Work Phone: [facility] 07-09-2023 13:02-0400 Body mass index (BMI) [Ratio] 25.79 kg/m2 Damien Dillard MD Work Phone: [facility] 07-09-2023 13:02-0400 Body weight 70.31 kg Damien Dillard MD Work Phone: [facility] 07-09-2023 13:02-0400 Diastolic blood pressure 77 mm[Hg] Damien Dillard MD Work Phone: [facility] 07-09-2023 13:02-0400 Heart rate 89 /min Damien Dillard MD Work Phone: [facility] 07-09-2023 13:02-0400 Systolic blood pressure 126 mm[Hg] Damien Dillard MD Work Phone: [facility] 02-04-2023 12:44-0400 Body weight 73.71 kg Migdalia Tena MD Work Phone: [facility] 02-04-2023 12:44-0400 Diastolic blood pressure 80 mm[Hg] Migdalia Tena MD Work Phone: [facility] 02-04-2023 12:44-0400 Heart rate 76 /min Migdalia Tena MD Work Phone: [facility] 02-04-2023 12:44-0400 Respiratory rate 16 /min Migdalia Tena MD Work Phone: [facility] 02-04-2023 12:44-0400 Systolic blood pressure 130 mm[Hg] Migdalia Tena MD Work Phone: [facility] 01-07-2023 13:09-0500 Body height 165.1 cm Damien Dillard MD Work Phone: [facility] 01-07-2023 13:09-0500 Body mass index (BMI) [Ratio] 27.12 kg/m2 Damien Dillard MD Work Phone: [facility] 01-07-2023 13:09-0500 Body weight 73.94 kg Damien Dillard MD Work Phone: [facility] 01-07-2023 13:09-0500 Diastolic blood pressure 76 mm[Hg] Damien Dillard MD Work Phone: [facility] 01-07-2023 13:09-0500 Heart rate 81 /min Damien Dillard MD Work Phone: [facility] 01-07-2023 13:09-0500 Systolic blood pressure 124 mm[Hg] Damien Dillard MD Work Phone: [facility] 12-06-2022 13:15-0500 Diastolic blood pressure 70 mm[Hg] Mao Sweet SEARCH SPECIALIST.INVESTIGATION DIVISION CAPTAIN Work Phone: [facility] 12-06-2022 13:15-0500 Systolic blood pressure 120 mm[Hg] Mao Sweet SEARCH SPECIALIST.INVESTIGATION DIVISION CAPTAIN Work Phone: [facility] 05-23-2022 12:36-0400 Body weight 74.53 kg Migdalia Tena MD Work Phone: [facility] 05-23-2022 12:36-0400 Diastolic blood pressure 72 mm[Hg] Migdalia Tena MD Work Phone: [facility] 05-23-2022 12:36-0400 Heart rate 68 /min Migdalia Tena MD Work Phone: [facility] 05-23-2022 12:36-0400 Respiratory rate 16 /min Migdalia Tena MD Work Phone: [facility] 05-23-2022 12:36-0400 Systolic blood pressure 120 mm[Hg] Migdalia Tena MD Work Phone: [facility] 04-19-2022 16:21-0400 Body weight 75.66 kg Migdalia Tena MD Work Phone: [facility] 04-19-2022 16:21-0400 Diastolic blood pressure 74 mm[Hg] Migdalia Tena MD Work Phone: [facility] 04-19-2022 16:21-0400 Heart rate 68 /min Migdalia Tena MD Work Phone: [facility] 04-19-2022 16:21-0400 Respiratory rate 16 /min Migdalia Tena MD Work Phone: [facility] 04-19-2022 16:21-0400 Systolic blood pressure 124 mm[Hg] Migdalia Tena MD Work Phone: [facility] Encounters Encounter Date Encounter Type Care Provider Facility Start: 11-22-2023 End: 11-23-2023 ambulatory MIGDALIA TENA Facility:[facility] Start: 10-23-2023 End: 10-24-2023 ambulatory ANNIA CORREIA Facility:[facility] Start: 10-23-2023 End: 10-23-2023 Patient encounter procedure Annia Correia MD Work Phone: [facility] [place] Procedures Date Procedure Procedure Detail Performing Clinician Start: 09-06-2023 Urnls dip stick/tabl et rgnt auto w/o microscopy Mao Sweet SEARCH SPECIALIST.INVESTIGATION DIVISION CAPTAIN Work Phone: Start: 08-12-2023 Screening mammograph y bi 2-view breast inc cad Bulk Order Provider Start: 08-08-2023 Lipid 1996 panel - S jairo or Plasma Mammography Coordinator Start: 05-22-2022 End: 05-22-2022 Mammography Bulk Order Provider Start: 01-24-2022 Adult depression screening assessment Migdalia Tena MD Work Phone: Start: 02-17-2021 Mammography Migdalia foreman MD Work Phone: Plan of Treatment Date Care Activity Detail Author Start: 08-08-2028 Lipid 1996 panel - Serum or Plasma Lipid Screening [facility] Start: 01-29-2028 LIPID SCREEN LIPID SCREEN [facility] Start: 08-01-2027 LIPID SCREEN LIPID SCREEN [facility] Start: 01-17-2027 LIPID SCREEN LIPID SCREEN [facility] Start: 08-08-2026 Diabetes Screening Diabetes Screening [facility] Start: 01-28-2026 DIABETES SCREEN DIABETES SCREEN [facility] Start: 08-01-2025 DIABETES SCREEN DIABETES SCREEN [facility] Start: 01-17-2025 DIABETES SCREEN DIABETES SCREEN [facility] Start: 10-23-2024 Annual PCP Team Chronic Disease Visit Annual PCP Team Chronic Disease Visit [facility] Start: 09-06-2024 Annual PCP Team Chronic Disease Visit Annual PCP Team Chronic Disease Visit [facility] Start: 09-06-2024 BP Controlled (<130/80) BP Controlled (<130/80) [facility] Start: 08-26-2024 Colorectal Cancer Screening Colorectal Cancer Screening [facility] Start: 08-26-2024 Fecal Occult Blood Fecal Occult Blood [facility] Start: 08-15-2024 Annual PCP Team Chronic Disease Visit Annual PCP Team Chronic Disease Visit [facility] Start: 08-15-2024 BP Controlled (<130/80) BP Controlled (<130/80) [facility] Start: 08-12-2024 Mammography Mammogram Screening [facility] Start: 07-18-2024 ANNUAL PCP TEAM CHRONIC DISEASE VISIT ANNUAL PCP TEAM CHRONIC DISEASE VISIT [facility] Start: 07-18-2024 BP CONTROLLED (<130/80) BP CONTROLLED (<130/80) [facility] Start: 02-13-2024 End: 04-14-2024 CBC panel - Blood by Automated count CBC Lab Routine Essential hypertension Expected: 02/13/2024 (Approximate), Expires: 04/14/[address] [facility] Work Phone: Immunizations Immunization Date Immunization Notes Care Provider Fa elfego 11-27-2019 influenza virus vaccine, unspecified formulation Mammography Coordinator [facility] 12-13-2017 pneumococcal polysaccharide vaccine, 23 valent Migdalia Tena MD Work Phone: [facility] 08-08-2017 influenza, high dose seasonal, preservative-free Migdalia Tena MD Work Phone: [facility] 10-29-2016 influenza, high dose seasonal, preservative-free Migdalia Tena MD Work Phone: [facility] 10-29-2016 pneumococcal conjuga te vaccine, 13 valent Migdalia Tena MD Work Phone: [facility] 03-21-2010 tetanus and diphther ia toxoids, adsorbed, preservative free, for adult use (2 Lf of tetanus toxoid and 2 Lf of diphtheria toxoid) Migdalia Tena MD Work Phone: [facility] 03-01-1999 tetanus and diphther ia toxoids, adsorbed, preservative free, for adult use (2 Lf of tetanus toxoid and 2 Lf of diphtheria toxoid) Migdalia Tena MD Work Phone: [facility] Work Phone: 01-09-1979 rubella virus vaccine Migdalia herrera MD Work Phone: [facility] Work Phone: Payers Date Payer Category Payer Medicare [id number] 2022 Medicare AETNA MEDICARE A ETNA MEDICARE PPO [id number] 2022-Present [phone] [address] [place] [address] PPO [id number] 2022 Medicare AETNA MEDICARE A ETNA MEDICARE HMO [id number] 2022-Present [phone] [address] [place] [address] HMO [id number] 2022 Medicare [id number] 2022 Medicare UHC MEDICARE UHC DUAL COMPLETE HMO SNP [id number] 2022-Present [phone] [address] [place] [address] Medicare [id number] 2016 Medicaid MEDICAID [facility] MEDICAID [id number] 2016-Present [phone] [address] [place] [address] Medicaid [id number] 2016 Medicaid [id number] 2016 Medicaid [id number] 2016 Unknown ANTHEM ANTHEM ME DICARE SUPPLEMENT [id number] 2016-Present [phone] [address] [place] [address] Indemnity [id number] 2016 Unknown [id number] 2016 Unknown [id number] 2016 Medicare [id number] 2016 Medicare [id number] 1950 Unknown [id number] 1950 Unknown [id number] 1950 Unknown [id number] 1950 Unknown [id number] 1950 Unknown [id number] 1950 Unknown [id number] 1950 Unknown [id number] Social History Date Type Detail Facility Start: 04-30-2012 End: 12-06-2022 Tobacco smoking status [facility] Never smoked tobacco [facility] Work Phone: Start: 01-24-2022 End: 09-06-2023 Alcohol intake Current non-drinker of alcohol (finding) [facility] Start: 1950 Sex Assigned At Not on file [facility] Start: 12-25-2021 End: 01-07-2023 Exposure to SARS-CoV-2 (event) Not sure [facility] Start: 04-30-2012 End: 12-06-2022 Tobacco use and exposure Smokeless tobacco non-user [facility] Start: 01-07-2023 End: 07-09-2023 Alcohol intake Ex-drinker (finding) [facility] Start: 02-04-2023 End: 07-18-2023 History of Social function [facility] Work Phone: Start: 02-04-2023 End: 07-18-2023 Tobacco use panel [facility] Work Phone: Adult Depression Screening Assessment 0 [facility] Work Phone: Clinical Notes 02-20-2022 to 11-22-2023 Annia Correia MD - 10/23/2023 3:48 PM ESTTelephone Encounter - Keren Arias RN - 10/23/2023 12:16 PM ESTTelephone Encounter - Katarzyna Askew RN - 09/09/2023 4:21 PM EDT Note Date & Type Note Facility 11-22-2023 Note HNO ID: [id number] Author: MAO SWEET APRN.INVESTIGATION DIVISION CAPTAIN Service: ? Author Type: Nurse Practitioner Type: Progress Notes Filed: 11/22/2023 14:02 Note Text: This is a 73 year old female who presents today with: Patient presents with: Acute Visit: Left leg pain HISTORY OF PRESENT ILLNESS: Ronald Ashley is a 73 year old female. Patient presents with: Acute Visit: Left leg pain Here in the office for left leg pain. Pain started about 5 days ago, no injury to the area. Pain is on the side of the knee and calf. Pain is ache. Has been applying ice, heat and taking tylenol as needed. Elevating as needed. No SOB or chest pain. Will be traveling soon and would like this evaluated. Right Calf: 40 Left Calf: 41 cm PAST MEDICAL HISTORY: PAST MEDICAL HISTORY Diagnosis Date Aneurysm of unspecified site (HCC) 10/24 right carotid cavernous aneurysm per MRA Diverticulosis of colon (without mention of hemorrhage) Lupus (HCC) Osteoporosis 10/01/2013 Other and unspecified hyperlipidemia Unspecified essential hypertension Unspecified transient cerebral ischemia 10/24 Varicose veins of other sites PAST SURGICAL HISTORY Procedure Laterality Date COLONOSCOPY FLX DX W/COLLJ SPEC WHEN PFRMD 06/23/2007 Colonoscopy ALLERGIES Patient has no known allergies. MEDICATIONS Current Outpatient Medications Medication Sig alendronate (FOSAMAX) 70 mg tablet Take 70 mg by mouth one time a week. In AM with cup of water on empty stomach. Nothing else by mouth and stay upright for 30 min. lisinopril (ZESTRIL) 10 mg tablet Take 1 tablet by mouth once daily. hydrOXYchloroQUINE (PLAQUENIL) 200 mg tablet Take 1 tablet by mouth once daily. Pt is to take 1 tablet once daily per Dr. Damien Dillard atorvastatin (LIPITOR) 40 mg tablet Take 1 tablet by mouth once daily. fluticasone (FLONASE) 50 mcg/actuation nasal spray Use 2 Sprays in each nostril once daily. Rinse mouth after use. [id number]-[id number]-TD-Ca carb-vit K (ONE-A-DAY WOMEN'S 50+) 400 mcg-500 mg calcium-20 mcg tab Take 1 tablet by mouth once daily. No current facility-administered medications for this visit. FAMILY HISTORY Problem Relation Age of Onset Heart Mother Lipids Mother other (Other) Mother aneurysm Brain Heart Father Lipids Father other (Other) Father aneurysm AAA Heart Sister Lipids Sister Social History Tobacco Use Smoking status: Never Smokeless tobacco: Never Vaping Use Vaping Use: Never used Substance Use Topics Alcohol use: No Drug use: No REVIEW OF SYSTEMS GENERAL: No weight loss, malaise or fevers/chills HEENT: Negative for frequent or significant headaches, No changes in hearing or vision. NECK: Negative for lumps, goiter, pain and significant neck swelling RESPIRATORY: Negative for cough, hemoptysis, wheezing, dyspnea or shortness of breath CARDIOVASCULAR: Negative for chest pain, leg swelling, orthopnea, or palpitations GI: No nausea, vomiting, or diarrhea/constipation. No hematochezia/melena. No heartburn or reflux symptoms. : No history of dysuria, frequency or incontinence MUSCULOSKELETAL: Leg pain SKIN: Negative for lesions, rash, and itching ENDOCRINE: Negative for cold or heat intolerance, polyuria, polydipsia and goiter NEURO: No history of headaches, syncope, paralysis, seizures or tremors MOOD: Negative for depression, anxiety, or suicidal ideation. EXAM: BP 100/78 Pulse 82 Resp 16 Wt 70.8 kg (156 lb) SpO2 97% BMI 25.96 kg/m? PHYSICAL EXAM: General Appearance: Well appearing, alert, in no acute distress, well-hydrated, well nourished. Skin: Skin color, texture, turgor normal, no suspicious rashes or lesions. Head: Normocephalic, no masses, lesions, tenderness or abnormalities. Eyes: Anicteric sclera. Extraocular movements are intact. Lungs: Lungs clear to auscultation. No wheezing, rhonchi, rales. Heart: RRR without murmur, gallop, or rubs. No ectopy. Extremities: No deformities, edema, skin discoloration, clubbing or cyanosis. Good capillary refill. Measured Calf: Right: 40 cm, Left: 41 cm, Negative Homans sign, no erythema. Musculoskeletal: No joint swelling, deformity, or tenderness. Peripheral Pulses: Normal, Capillary refill <2secs, strong peripheral pulses, Pulses palpable. Neurologic: Gait normal. Sensation grossly intact. ASSESSMENT/PLAN: 1. Pain of left calf - ICD9: 729.5, ICD10: M79.662 - Risk of Dvt is low but due to enlarged left calf will get US for further evaluation. - Continue supportive care at home, continue to elevate the leg, heat to the area, and Tylenol as needed. - Red flag symptoms given to patient, she verbalizes understanding when to seek emergency care. - US DVT LOWER LEFT - US LEG VEIN DVT UNL VAS LAB Follow-up pending test results or sooner as needed. Discussed treatment plan and patient voices understanding. Patient's questions answered appropriately. Medications and potential side effects were discuss (more content not included)... [facility] 10-23-2023 Note HNO ID: [id number] Author: Annia Correia MD Service: ? Author Type: Physician Type: Progress Notes Filed: 10/24/2023 9:57 AM Note Text: Chief Complaint Patient presents with: mid sternal pain with inhalation: inhalation HPI Ronald Ashley is a 73 year old female who presents here today for Above Complaints. Patient here today with complaint of intermittent pain in her neck and in the center of her chest when she takes a deep breath. Started this morning and has only happened a few times today. When she gets the pain it lasts about a minute. Has taken tylenol today which has helped with her pain. Notes that she was lifting her grandchildren a lot 2 days ago. Denies fever/chills, cough, wheezing, SOB, palpitations, diaphoresis, lightheadedness/dizziness, worsening with exertion, fall/injury . Does improve with rest. Past medical history, appointments, medications, allergies reviewed. Previous Medical History PAST MEDICAL HISTORY Diagnosis Date Aneurysm of unspecified site (HCC) 10/24 right carotid cavernous aneurysm per MRA Diverticulosis of colon (without mention of hemorrhage) Lupus (HCC) Osteoporosis 10/01/2013 Other and unspecified hyperlipidemia Unspecified essential hypertension Unspecified transient cerebral ischemia 10/24 Varicose veins of other sites Previous Surgical History PAST SURGICAL HISTORY Procedure Laterality Date COLONOSCOPY FLX DX W/COLLJ SPEC WHEN PFRMD 06/23/2007 Colonoscopy Family History FAMILY HISTORY Problem Relation Age of Onset Heart Mother Lipids Mother other (Other) Mother aneurysm Brain Heart Father Lipids Father other (Other) Father aneurysm AAA Heart Sister Lipids Sister Patient Allergies ALLERGIES No Known Allergies Current Medications Current Outpatient Medications on File Prior to Visit Medication Sig alendronate (FOSAMAX) 70 mg tablet Take 70 mg by mouth one time a week. In AM with cup of water on empty stomach. Nothing else by mouth and stay upright for 30 min. lisinopril (ZESTRIL) 10 mg tablet Take 1 tablet by mouth once daily. hydrOXYchloroQUINE (PLAQUENIL) 200 mg tablet Take 1 tablet by mouth once daily. Pt is to take 1 tablet once daily per Dr. Damien Dillard atorvastatin (LIPITOR) 40 mg tablet Take 1 tablet by mouth once daily. fluticasone (FLONASE) 50 mcg/actuation nasal spray Use 2 Sprays in each nostril once daily. Rinse mouth after use. twmeptuk-ndk-QL-Ca carb-vit K (ONE-A-DAY WOMEN'S 50+) 400 mcg-500 mg calcium-20 mcg tab Take 1 tablet by mouth once daily. No current facility-administered medications on file prior to visit. Social History Social History Tobacco Use Smoking status: Never Smokeless tobacco: Never Vaping Use Vaping Use: Never used Substance Use Topics Alcohol use: No Drug use: No Review of Symptoms REVIEW OF SYSTEMS See HPI EXAM: BP 104/80 Pulse 103 Temp 36.9 ?C (98.4 ?F) Resp 16 Wt 72.6 kg (160 lb) SpO2 97% BMI 26.63 kg/m? General Appearance: Well appearing, alert, in no acute distress, well-hydrated, well nourished.. Skin: Skin color, texture, turgor normal, no suspicious rashes or lesions. Lungs: Lungs clear to auscultation. No wheezing, rhonchi, rales.. Heart: RRR without murmur, gallop, or rubs. No ectopy. Extremities: No deformities, edema, skin discoloration, clubbing or cyanosis. Good capillary refill. . Musculoskeletal: reproducible pain with palpation over her sternum and lower intercostal spaces. . Health Maintenance List Hepatitis C Screening Never done Shingrix Vaccine(1 of 2) Never done DTaP,Tdap,Td Vaccine(1 - Tdap) due on 03/22/2010 RSV Vaccine(1 - 1-dose 60+ series) Never done Influenza Vaccine(1) due on 07/19/2023 Covid-19 Vaccine( season) due on 07/19/2023 Mammogram Screening due on 08/12/2024 Colorectal Cancer Screening due on 08/26/2024 Annual PCP Team Chronic Disease Visit due on 09/06/2024 BP Controlled (<130/80) due on 09/06/2024 Diabetes Screening due on 08/08/2026 Lipid Screening due on 08/08/2028 Bone Density Screening Completed Advance Directive Discussion Completed Depression Assessment Completed Pneumococcal Vaccine: 65+ Completed ASSESSMENT/PLAN: 1. Costochondritis - ICD9: 733.6, ICD10: M94.0 Suspect pain is musculoskeletal. Possibly related to repeatedly lifting grandkids. Discussed ice and OTC analgesics PRN. Red flags for re-assessment reviewed with patient in detail. Annia Correia MD [facility] 10-23-2023 History of Present illness Narrative Chief Complaint Patient presents with: mid sternal pain with inhalation: inhalation HPI Ronald Ashley is a 73 year old female who presents here today for Above Complaints. Patient here today with complaint of intermittent pain in her neck and in the center of her chest when she takes a deep breath. Started this morning and has only happened a few times today. When she gets the pain it lasts about a minute. Has taken tylenol today which has helped with her pain. Notes that she was lifting her grandchildren a lot 2 days ago. Denies fever/chills, cough, wheezing, SOB, palpitations, diaphoresis, lightheadedness/dizziness, worsening with exertion, fall/injury . Does improve with rest. Past medical history, appointments, medications, allergies reviewed. Previous Medical History PAST MEDICAL HISTORY Diagnosis Date Aneurysm of unspecified site (HCC) 10/24 right carotid cavernous aneurysm per MRA Diverticulosis of colon (without mention of hemorrhage) Lupus (HCC) Osteoporosis 10/01/2013 Other and unspecified hyperlipidemia Unspecified essential hypertension Unspecified transient cerebral ischemia 10/24 Varicose veins of other sites Previous Surgical History PAST SURGICAL HISTORY Procedure Laterality Date COLONOSCOPY FLX DX W/COLLJ SPEC WHEN PFRMD 06/23/2007 Colonoscopy Family History FAMILY HISTORY Problem Relation Age of Onset Heart Mother Lipids Mother other (Other) Mother aneurysm Brain Heart Father Lipids Father other (Other) Father aneurysm AAA Heart Sister Lipids Sister Patient Allergies ALLERGIES No Known Allergies Current Medications Current Outpatient Medications on File Prior to Visit Medication Sig alendronate (FOSAMAX) 70 mg tablet Take 70 mg by mouth one time a week. In AM with cup of water on empty stomach. Nothing else by mouth and stay upright for 30 min. lisinopril (ZESTRIL) 10 mg tablet Take 1 tablet by mouth once daily. hydrOXYchloroQUINE (PLAQUENIL) 200 mg tablet Take 1 tablet by mouth once daily. Pt is to take 1 tablet once daily per Dr. Damien Dillard atorvastatin (LIPITOR) 40 mg tablet Take 1 tablet by mouth once daily. fluticasone (FLONASE) 50 mcg/actuation nasal spray Use 2 Sprays in each nostril once daily. Rinse mouth after use. rwxoeaih-zum-AC-Ca carb-vit K (ONE-A-DAY WOMEN'S 50+) 400 mcg-500 mg calcium-20 mcg tab Take 1 tablet by mouth once daily. No current facility-administered medications on file prior to visit. Social History Social History Tobacco Use Smoking status: Never Smokeless tobacco: Never Vaping Use Vaping Use: Never used Substance Use Topics Alcohol use: No Drug use: No Review of Symptoms REVIEW OF SYSTEMS See HPI EXAM: BP 104/80 Pulse 103 Temp 36.9 C (98.4 F) Resp 16 Wt 72.6 kg (160 lb) SpO2 97% BMI 26.63 kg/m General Appearance: Well appearing, alert, in no acute distress, well-hydrated, well nourished.. Skin: Skin color, texture, turgor normal, no suspicious rashes or lesions. Lungs: Lungs clear to auscultation. No wheezing, rhonchi, rales.. Heart: RRR without murmur, gallop, or rubs. No ectopy. Extremities: No deformities, edema, skin discoloration, clubbing or cyanosis. Good capillary refill. . Musculoskeletal: reproducible pain with palpation over her sternum and lower intercostal spaces. . Health Maintenance List Hepatitis C Screening Never done Shingrix Vaccine(1 of 2) Never done DTaP,Tdap,Td Vaccine(1 - Tdap) due on 03/22/2010 RSV Vaccine(1 - 1-dose 60+ series) Never done Influenza Vaccine(1) due on 07/19/2023 Covid-19 Vaccine( - season) due on 07/19/2023 Mammogram Screening due on 08/12/2024 Colorectal Cancer Screening due on 08/26/2024 Annual PCP Team Chronic Disease Visit due on 09/06/2024 BP Controlled (<130/80) due on 09/06/2024 Diabetes Screening due on 08/08/2026 Lipid Screening due on 08/08/2028 Bone Density Screening Completed Advance Directive Discussion Completed Depression Assessment Completed Pneumococcal Vaccine: 65+ Completed ASSESSMENT/PLAN: 1. Costochondritis - ICD9: 733.6, ICD10: M94.0 Suspect pain is musculoskeletal. Possibly related to repeatedly lifting grandkids. Discussed ice and OTC analgesics PRN. Red flags for re-assessment reviewed with patient in detail. Annia Correia MD documented in this encounter [facility] 10-23-2023 Miscellaneous Notes Pt calling in with complaints of occasional chest tenderness when she takes a deep breath. States it started about 330-4 am this morning. Pt said multiple times that she has osteoporosis and arthritis in her back. Denies SOB, breathing difficulties, fever, or any back pain at the moment. She denies chest pain-states occasionally when she takes a deep breath it feels tender in between her breast. States it's not real bad just notices it. And it doesn't occur with every deep breath-just sometimes. Pt feels like she might be getting a cold. Feels like her nose may run but is also feeling stuffed up. She said her told her to just stay in bed and her son said to call the doctor right away because she might have pneumonia. Pt feels maybe she should have an xray. Pt given an appt at [address] Correia. documented in this encounter [facility] 09-09-2023 Miscellaneous Notes Patient calls and notified of results and providers instructions. Patient verbalizes understanding. Katarzyna Askew RN Can you please call the patient and let her know that her urine culture came back positive for UTI. I would like to continue to take antibiotics until gone. If symptoms do not improve please contact the office. Mao Sweet APRN.TAISHA documented in this encounter [facility] 09-06-2023 Note HNO ID: [id number] Author: Mao Sweet APRN.TAISHA Service: ? Author Type: Nurse Practitioner Type: Progress Notes Filed: 09/06/2023 2:12 PM Note Text: This is a 73 year old female who presents today with: Patient presents with: Acute Visit: frequency x 3 days HISTORY OF PRESENT ILLNESS: Ronald Ashley is a 73 year old female. Patient presents with: Acute Visit: frequency x 3 days Dysuria that started Saturday night. Increased urinary frequency and dysuria. No hematuria . No fever, chills, or flank pain. PAST MEDICAL HISTORY: PAST MEDICAL HISTORY Diagnosis Date Aneurysm of unspecified site (HCC) 10/24 right carotid cavernous aneurysm per MRA Diverticulosis of colon (without mention of hemorrhage) Lupus (HCC) Osteoporosis 10/01/2013 Other and unspecified hyperlipidemia Unspecified essential hypertension Unspecified transient cerebral ischemia 10/24 Varicose veins of other sites PAST SURGICAL HISTORY Procedure Laterality Date COLONOSCOPY FLX DX W/COLLJ SPEC WHEN PFRMD 06/23/2007 Colonoscopy ALLERGIES Patient has no known allergies. MEDICATIONS Current Outpatient Medications Medication Sig alendronate (FOSAMAX) 70 mg tablet Take 70 mg by mouth one time a week. In AM with cup of water on empty stomach. Nothing else by mouth and stay upright for 30 min. lisinopril (ZESTRIL) 10 mg tablet Take 1 tablet by mouth once daily. hydrOXYchloroQUINE (PLAQUENIL) 200 mg tablet Take 1 tablet by mouth once daily. Pt is to take 1 tablet once daily per Dr. Damien Dillard atorvastatin (LIPITOR) 40 mg tablet Take 1 tablet by mouth once daily. fluticasone (FLONASE) 50 mcg/actuation nasal spray Use 2 Sprays in each nostril once daily. Rinse mouth after use. swpftqpt-bzv-LX-Ca carb-vit K (ONE-A-DAY WOMEN'S 50+) 400 mcg-500 mg calcium-20 mcg tab Take 1 tablet by mouth once daily. No current facility-administered medications for this visit. FAMILY HISTORY Problem Relation Age of Onset Heart Mother Lipids Mother other (Other) Mother aneurysm Brain Heart Father Lipids Father other (Other) Father aneurysm AAA Heart Sister Lipids Sister Social History Tobacco Use Smoking status: Never Smokeless tobacco: Never Vaping Use Vaping Use: Never used Substance Use Topics Alcohol use: No Drug use: No REVIEW OF SYSTEMS GENERAL: No weight loss, malaise or fevers/chills HEENT: Negative for frequent or significant headaches, No changes in hearing or vision. NECK: Negative for lumps, goiter, pain and significant neck swelling RESPIRATORY: Negative for cough, hemoptysis, wheezing, dyspnea or shortness of breath CARDIOVASCULAR: Negative for chest pain, leg swelling, orthopnea, or palpitations GI: No nausea, vomiting, or diarrhea/constipation. No hematochezia/melena. No heartburn or reflux symptoms. : + Dysuria, increased urinary frequency MUSCULOSKELETAL: Negative for joint pain or swelling. SKIN: Negative for lesions, rash, and itching ENDOCRINE: Negative for cold or heat intolerance, polyuria, polydipsia and goiter NEURO: No history of headaches, syncope, paralysis, seizures or tremors MOOD: Negative for depression, anxiety, or suicidal ideation. EXAM: BP 104/64 Pulse 87 Resp 16 Wt 71.2 kg (157 lb) SpO2 98% BMI 26.13 kg/m? PHYSICAL EXAM: General Appearance: Well appearing, alert, in no acute distress, well-hydrated, well nourished. Skin: Skin color, texture, turgor normal, no suspicious rashes or lesions. Head: Normocephalic, no masses, lesions, tenderness or abnormalities. Eyes: Anicteric sclera. Extraocular movements are intact. Lungs: Lungs clear to auscultation. No wheezing, rhonchi, rales. Heart: RRR without murmur, gallop, or rubs. No ectopy. Abdomen: Normal abdominal exam, Abdomen soft, non-tender. Bowel sounds normal. No masses, organomegaly, Negative CVA tenderness. Extremities: No deformities, edema, skin discoloration, clubbing or cyanosis. Good capillary refill. Peripheral Pulses: Normal, Capillary refill <2secs, strong peripheral pulses, Pulses palpable. Neurologic: Gait normal. Sensation grossly intact. UA: Blood,Protein, and Leuks ASSESSMENT/PLAN: 1. Acute cystitis with hematuria - ICD9: 595.0, ICD10: N30.01 - Start on Macrobid - May use Pyridium as needed for pain. - Instructed to increase water intake. - Urine culture and microanalysis will be completed. - URINE CULTURE - NITROFURANTOIN MONOHYDRATE AND MACROCRYSTAL 100 MG ORAL CAP - PHENAZOPYRIDINE 200 MG TABLET - URINALYSIS, WITH MICROSCOPIC Follow-up pending test results or sooner as needed. Discussed treatment plan and patient voices understanding. Patient's questions answered appropriately. Medications and potential side effects were discussed and patient voices understanding. Mao Sweet APRN.INVESTIGATION DIVISION CAPTAIN This note was partially generated using [employer] voice recognition system. Note was reviewed for accuracy. There may be minor missp (more content not included)... [facility] 09-06-2023 History of Present illness Narrative This is a 73 year old female who presents today with: Patient presents with: Acute Visit: frequency x 3 days HISTORY OF PRESENT ILLNESS: Ronald Ashley is a 73 year old female. Patient presents with: Acute Visit: frequency x 3 days Dysuria that started Saturday night. Increased urinary frequency and dysuria. No hematuria . No fever, chills, or flank pain. PAST MEDICAL HISTORY: PAST MEDICAL HISTORY Diagnosis Date Aneurysm of unspecified site (HCC) 10/24 right carotid cavernous aneurysm per MRA Diverticulosis of colon (without mention of hemorrhage) Lupus (HCC) Osteoporosis 10/01/2013 Other and unspecified hyperlipidemia Unspecified essential hypertension Unspecified transient cerebral ischemia 10/24 Varicose veins of other sites PAST SURGICAL HISTORY Procedure Laterality Date COLONOSCOPY FLX DX W/COLLJ SPEC WHEN PFRMD 06/23/2007 Colonoscopy ALLERGIES Patient has no known allergies. MEDICATIONS Current Outpatient Medications Medication Sig alendronate (FOSAMAX) 70 mg tablet Take 70 mg by mouth one time a week. In AM with cup of water on empty stomach. Nothing else by mouth and stay upright for 30 min. lisinopril (ZESTRIL) 10 mg tablet Take 1 tablet by mouth once daily. hydrOXYchloroQUINE (PLAQUENIL) 200 mg tablet Take 1 tablet by mouth once daily. Pt is to take 1 tablet once daily per Dr. Dmaien Dillard atorvastatin (LIPITOR) 40 mg tablet Take 1 tablet by mouth once daily. fluticasone (FLONASE) 50 mcg/actuation nasal spray Use 2 Sprays in each nostril once daily. Rinse mouth after use. trjbgkzy-okv-KL-Ca carb-vit K (ONE-A-DAY WOMEN'S 50+) 400 mcg-500 mg calcium-20 mcg tab Take 1 tablet by mouth once daily. No current facility-administered medications for this visit. FAMILY HISTORY Problem Relation Age of Onset Heart Mother Lipids Mother other (Other) Mother aneurysm Brain Heart Father Lipids Father other (Other) Father aneurysm AAA Heart Sister Lipids Sister Social History Tobacco Use Smoking status: Never Smokeless tobacco: Never Vaping Use Vaping Use: Never used Substance Use Topics Alcohol use: No Drug use: No REVIEW OF SYSTEMS GENERAL: No weight loss, malaise or fevers/chills HEENT: Negative for frequent or significant headaches, No changes in hearing or vision. NECK: Negative for lumps, goiter, pain and significant neck swelling RESPIRATORY: Negative for cough, hemoptysis, wheezing, dyspnea or shortness of breath CARDIOVASCULAR: Negative for chest pain, leg swelling, orthopnea, or palpitations GI: No nausea, vomiting, or diarrhea/constipation. No hematochezia/melena. No heartburn or reflux symptoms. : + Dysuria, increased urinary frequency MUSCULOSKELETAL: Negative for joint pain or swelling. SKIN: Negative for lesions, rash, and itching ENDOCRINE: Negative for cold or heat intolerance, polyuria, polydipsia and goiter NEURO: No history of headaches, syncope, paralysis, seizures or tremors MOOD: Negative for depression, anxiety, or suicidal ideation. EXAM: BP 104/64 Pulse 87 Resp 16 Wt 71.2 kg (157 lb) SpO2 98% BMI 26.13 kg/m PHYSICAL EXAM: General Appearance: Well appearing, alert, in no acute distress, well-hydrated, well nourished. Skin: Skin color, texture, turgor normal, no suspicious rashes or lesions. Head: Normocephalic, no masses, lesions, tenderness or abnormalities. Eyes: Anicteric sclera. Extraocular movements are intact. Lungs: Lungs clear to auscultation. No wheezing, rhonchi, rales. Heart: RRR without murmur, gallop, or rubs. No ectopy. Abdomen: Normal abdominal exam, Abdomen soft, non-tender. Bowel sounds normal. No masses, organomegaly, Negative CVA tenderness. Extremities: No deformities, edema, skin discoloration, clubbing or cyanosis. Good capillary refill. Peripheral Pulses: Normal, Capillary refill <2secs, strong peripheral pulses, Pulses palpable. Neurologic: Gait normal. Sensation grossly intact. UA: Blood,Protein, and Leuks ASSESSMENT/PLAN: 1. Acute cystitis with hematuria - ICD9: 595.0, ICD10: N30.01 - Start on Macrobid - May use Pyridium as needed for pain. - Instructed to increase water intake. - Urine culture and microanalysis will be completed. - URINE CULTURE - NITROFURANTOIN MONOHYDRATE & MACROCRYSTAL 100 MG ORAL CAP - PHENAZOPYRIDINE 200 MG TABLET - URINALYSIS, WITH MICROSCOPIC Follow-up pending test results or sooner as needed. Discussed treatment plan and patient voices understanding. Patient's questions answered appropriately. Medications and potential side effects were discussed and patient voices understanding. Mao Sweet APRN.CNP This note was partially generated using [employer] voice recognition system. Note was reviewed for accuracy. There may be minor misspellings or grammar miscues with [employer] voice recognition. documented in this encounter [facility] 09-06-2023 Instructions Mao Sweet APRN.CNP - 09/06/2023 1:55 PM EDT Start Macrobid, take with food. Increase water intake May use Pyridium as needed for pain. Will cause urine to turn orange. Urine culture will be sent out. Follow up pending results or sooner as needed. documented in this encounter [facility] 08-15-2023 Note HNO ID: [id number] Author: Migdalia Tena MD Service: ? Author Type: Physician Type: Progress Notes Filed: 08/15/2023 3:12 PM Note Text: Chief Complaint Patient presents with: 6 Month Exam HPI Ronald Ashley is a 73 year old female who presents here today for a 6 month follow up. Pt here today for a 6 month follow up. Declined flu vaccine and new Covid vaccines. Baby sits her 2 great grand children ages 4 and 2 years old. No bowel, Gi, or urinary issues. Did IFOBT test 2021, will repeat. HTN: Checks BP at home, stable. Denies any chest pain, sob or dizziness. On current regimen of Lisinopril 10 mg once daily. Lipids: Tries to watch diet and do some exercising at home. On current regimen of Lipitor 40 mg once daily. Tolerating well. Lupus: Following with Rheum/Ortho, Dr. Dillard. Has occ flare ups. On current regimen of Plaquenil 200 mg once daily; recently started fosamax for osteoporosis, so no longer using steroids . Medication is prescribed by Rheumatology. Past medical history, appointments, medications, allergies reviewed. Previous Medical History PAST MEDICAL HISTORY Diagnosis Date Aneurysm of unspecified site (HCC) 10/24 right carotid cavernous aneurysm per MRA Diverticulosis of colon (without mention of hemorrhage) Lupus (HCC) Osteoporosis 10/01/2013 Other and unspecified hyperlipidemia Unspecified essential hypertension Unspecified transient cerebral ischemia 10/24 Varicose veins of other sites Previous Surgical History PAST SURGICAL HISTORY Procedure Laterality Date COLONOSCOPY FLX DX W/COLLJ SPEC WHEN PFRMD 06/23/2007 Colonoscopy Family History FAMILY HISTORY Problem Relation Age of Onset Heart Mother Lipids Mother other (Other) Mother aneurysm Brain Heart Father Lipids Father other (Other) Father aneurysm AAA Heart Sister Lipids Sister Patient Allergies ALLERGIES No Known Allergies Current Medications Current Outpatient Medications on File Prior to Visit Medication Sig alendronate (FOSAMAX) 70 mg tablet Take 70 mg by mouth one time a week. In AM with cup of water on empty stomach. Nothing else by mouth and stay upright for 30 min. lisinopril (ZESTRIL) 10 mg tablet Take 1 tablet by mouth once daily. hydrOXYchloroQUINE (PLAQUENIL) 200 mg tablet Take 1 tablet by mouth once daily. Pt is to take 1 tablet once daily per Dr. Damien Dillard atorvastatin (LIPITOR) 40 mg tablet Take 1 tablet by mouth once daily. fluticasone (FLONASE) 50 mcg/actuation nasal spray Use 2 Sprays in each nostril once daily. Rinse mouth after use. predniSONE (DELTASONE) 10 mg tablet TAKE 1 TABLET DAILY for 3-5 days with flare (Patient not taking: Reported on 07/18/2023) predniSONE (DELTASONE) 20 mg tablet Take 2 tablets by mouth once daily. For 3-5 days as needed (Patient not taking: Reported on 07/18/2023) bbcnrtgd-tjt-XV-Ca carb-vit K (ONE-A-DAY WOMEN'S 50+) 400 mcg-500 mg calcium-20 mcg tab Take 1 tablet by mouth once daily. No current facility-administered medications on file prior to visit. Social History Social History Tobacco Use Smoking status: Never Smokeless tobacco: Never Vaping Use Vaping Use: Never used Substance Use Topics Alcohol use: No Drug use: No EXAM: BP 110/70 Pulse 80 Resp 16 Wt 71.1 kg (156 lb 11.2 oz) BMI 26.08 kg/m? General Appearance: Well appearing, alert, in no acute distress, well-hydrated, well nourished.. Lungs: Lungs clear to auscultation. No wheezing, rhonchi, rales.. Heart: RRR without murmur, gallop, or rubs. No ectopy. Health Maintenance List Hepatitis C Screening Never done Shingrix Vaccine(1 of 2) Never done DTaP,Tdap,Td Vaccine(1 - Tdap) due on 03/22/2010 Covid-19 Vaccine(4 - Moderna series) due on 02/01/2022 Mammogram Screening due on 05/22/2023 Colorectal Cancer Screening due on 06/07/2023 Influenza Vaccine(1) due on 07/19/2023 Annual PCP Team Chronic Disease Visit due on 07/18/2024 BP Controlled (<130/80) due on 07/18/2024 Diabetes Screening due on 08/08/2026 Lipid Screening due on 08/08/2028 Bone Density Screening Completed Advance Directive Discussion Completed Depression Assessment Completed Pneumococcal Vaccine: 65+ Completed Data reviewed Appointment on 08/08/2023 Component Date Value Cholesterol, Total 08/08/2023 194 Triglyceride 08/08/2023 95 HDL Cholesterol 08/08/2023 89 Non HDL Cholesterol 08/08/2023 105 Fasting Time 08/08/2023 12 VLDL Cholesterol 08/08/2023 19 TC:HDL Ratio 08/08/2023 2.18 LDL Cholesterol 08/08/2023 86 LDL:HDL Ratio 08/08/2023 0.97 Protein, Total 08/08/2023 6.9 Albumin 08/08/2023 4.4 Calcium, Total 08/08/2023 9.7 Bilirubin, Total 08/08/2023 0.6 Alkaline Phosphatase 08/08/2023 100 AST 08/08/2023 25 ALT 08/08/2023 19 Glucose 08/08/2023 88 BUN 08/08/2023 14 Creatinine 08/08/2023 0.95 Sodium 08/08/2023 140 Potassium 08/08/2023 4.2 Chloride 08/08/2023 103 CO2 08/08/2023 27 Anion Gap 08/08/20 (more content not included)... [facility] 08-15-2023 History of Present illness Narrative Chief Complaint Patient presents with: 6 Month Exam HPI Ronald Ashley is a 73 year old female who presents here today for a 6 month follow up. Pt here today for a 6 month follow up. Declined flu vaccine and new Covid vaccines. Baby sits her 2 great grand children ages 4 and 2 years old. No bowel, Gi, or urinary issues. Did IFOBT test 2021, will repeat. HTN: Checks BP at home, stable. Denies any chest pain, sob or dizziness. On current regimen of Lisinopril 10 mg once daily. Lipids: Tries to watch diet and do some exercising at home. On current regimen of Lipitor 40 mg once daily. Tolerating well. Lupus: Following with Rheum/Ortho, Dr. Dillard. Has occ flare ups. On current regimen of Plaquenil 200 mg once daily; recently started fosamax for osteoporosis, so no longer using steroids . Medication is prescribed by Rheumatology. Past medical history, appointments, medications, allergies reviewed. Previous Medical History PAST MEDICAL HISTORY Diagnosis Date Aneurysm of unspecified site (HCC) 10/24 right carotid cavernous aneurysm per MRA Diverticulosis of colon (without mention of hemorrhage) Lupus (HCC) Osteoporosis 10/01/2013 Other and unspecified hyperlipidemia Unspecified essential hypertension Unspecified transient cerebral ischemia 10/24 Varicose veins of other sites Previous Surgical History PAST SURGICAL HISTORY Procedure Laterality Date COLONOSCOPY FLX DX W/COLLJ SPEC WHEN PFRMD 06/23/2007 Colonoscopy Family History FAMILY HISTORY Problem Relation Age of Onset Heart Mother Lipids Mother other (Other) Mother aneurysm Brain Heart Father Lipids Father other (Other) Father aneurysm AAA Heart Sister Lipids Sister Patient Allergies ALLERGIES No Known Allergies Current Medications Current Outpatient Medications on File Prior to Visit Medication Sig alendronate (FOSAMAX) 70 mg tablet Take 70 mg by mouth one time a week. In AM with cup of water on empty stomach. Nothing else by mouth and stay upright for 30 min. lisinopril (ZESTRIL) 10 mg tablet Take 1 tablet by mouth once daily. hydrOXYchloroQUINE (PLAQUENIL) 200 mg tablet Take 1 tablet by mouth once daily. Pt is to take 1 tablet once daily per Dr. Damien Dillard atorvastatin (LIPITOR) 40 mg tablet Take 1 tablet by mouth once daily. fluticasone (FLONASE) 50 mcg/actuation nasal spray Use 2 Sprays in each nostril once daily. Rinse mouth after use. predniSONE (DELTASONE) 10 mg tablet TAKE 1 TABLET DAILY for 3-5 days with flare (Patient not taking: Reported on 07/18/2023) predniSONE (DELTASONE) 20 mg tablet Take 2 tablets by mouth once daily. For 3-5 days as needed (Patient not taking: Reported on 07/18/2023) zkeqscdm-fon-NP-Ca carb-vit K (ONE-A-DAY WOMEN'S 50+) 400 mcg-500 mg calcium-20 mcg tab Take 1 tablet by mouth once daily. No current facility-administered medications on file prior to visit. Social History Social History Tobacco Use Smoking status: Never Smokeless tobacco: Never Vaping Use Vaping Use: Never used Substance Use Topics Alcohol use: No Drug use: No EXAM: BP 110/70 Pulse 80 Resp 16 Wt 71.1 kg (156 lb 11.2 oz) BMI 26.08 kg/m General Appearance: Well appearing, alert, in no acute distress, well-hydrated, well nourished.. Lungs: Lungs clear to auscultation. No wheezing, rhonchi, rales.. Heart: RRR without murmur, gallop, or rubs. No ectopy. Health Maintenance List Hepatitis C Screening Never done Shingrix Vaccine(1 of 2) Never done DTaP,Tdap,Td Vaccine(1 - Tdap) due on 03/22/2010 Covid-19 Vaccine(4 - Moderna series) due on 02/01/2022 Mammogram Screening due on 05/22/2023 Colorectal Cancer Screening due on 06/07/2023 Influenza Vaccine(1) due on 07/19/2023 Annual PCP Team Chronic Disease Visit due on 07/18/2024 BP Controlled (<130/80) due on 07/18/2024 Diabetes Screening due on 08/08/2026 Lipid Screening due on 08/08/2028 Bone Density Screening Completed Advance Directive Discussion Completed Depression Assessment Completed Pneumococcal Vaccine: 65+ Completed Data reviewed Appointment on 08/08/2023 Component Date Value Cholesterol, Total 08/08/2023 194 Triglyceride 08/08/2023 95 HDL Cholesterol 08/08/2023 89 Non HDL Cholesterol 08/08/2023 105 Fasting Time 08/08/2023 12 VLDL Cholesterol 08/08/2023 19 TC:HDL Ratio 08/08/2023 2.18 LDL Cholesterol 08/08/2023 86 LDL:HDL Ratio 08/08/2023 0.97 Protein, Total 08/08/2023 6.9 Albumin 08/08/2023 4.4 Calcium, Total 08/08/2023 9.7 Bilirubin, Total 08/08/2023 0.6 Alkaline Phosphatase 08/08/2023 100 AST 08/08/2023 25 ALT 08/08/2023 19 Glucose 08/08/2023 88 BUN 08/08/2023 14 Creatinine 08/08/2023 0.95 Sodium 08/08/2023 140 Potassium 08/08/2023 4.2 Chloride 08/08/2023 103 CO2 08/08/2023 27 Anion Gap 08/08/2023 10 Estimated Glomerular Tr* 08/08/2023 64 ASSESSMENT/PLAN: 1. Essential hypertension - ICD9: 401.9, ICD10: I10 (primary diagnosis) - Controlled - Continue current medications - Recommend home blood pressure monitoring, to bring results to next visit - Encouraged sodium restriction, DASH or Mediterranean diet - Recommend regular aerobic exercise 2. Screening for colon cancer - ICD9: V76.51, ICD10: Z12.11 Test given to pt today - FECAL OCCULT BLOOD TEST 3. Mixed hyperlipidemia - ICD9: 272.2, ICD10: E78.2 - Controlled - Continue current medications - Counseled on healthy diet and regular exercise - Discussed need for and benefit of weight loss. BMI 26.08 kg/(m^2) 4. Lupus erythematosus, unspecified form - ICD9: 695.4, ICD10: L93.0 Continue current medications. Continue with Dr. Dillard, Rheum 5. Osteoporosis, unspecified osteoporosis type, unspecified pathological fracture presence - ICD9: 733.00, ICD10: M81.0 - continue tx with alendronate (Fosamax) - Reviewed the need for Calcium and Vitamin D supplements and weight bearing exercise as tolerated Follow up in 6 months with fasting labs prior. I agree with the Chief Complaint, ROS, and Past Histories independently gathered by the clinical support associate and the remaining scribed note accurately describes my personal service to the patient. Medical Decision Making: Problems: Moderate: 2+ stable chronic illnesses Data: Unique test result(s) reviewed: 2 Unique test(s) ordered: 2 Risk: Moderate: Drug management Medical Decision Making Level: 4 - Moderate Migdalia Tena MD The documentation for this note was completed by Nika Rai Ma acting as scribe for Migdalia Tena MD. August 15, 2023 2:42 PM. Nika Rai Ma documented in this encounter [facility] 08-13-2023 Miscellaneous Notes August 14, 2023 PID: [id number] Ronald Ashley [address] [place] [address] Dear Ms. Ashley, We are pleased to inform you that the results of your recent breast imaging exam on 08/12/2023 are normal. Early detection of cancer is very important. We also understand recommendations regarding breast cancer screening are controversial. Please discuss with your primary care provider which strategy is best for you and whether a mammogram is right for you. Your imaging studies and report will be kept on file at [facility] as part of your permanent medical record and are available for your continuing care. Thank you for allowing us to help in meeting your health care needs. Sincerely, Dr. Palacios Interpreting Radiologist [facility] (Normal over 40) documented in this encounter [facility] 08-12-2023 Note HNO ID: [id number] Author: Tanya Mantilla Mammo Tech Service: ? Author Type: Equity Analyst Type: Progress Notes Filed: 08/12/2023 1:29 PM Note Text: Radiology Service Progress Note PATIENT NAME: Ronald Ashley DATE OF SERVICE: August 12, 2023 TIME: 1:19 PM PATIENT IDENTITY VERIFICATION COMPLETED USING TWO (2) IDENTIFIERS: Name and Date of confirmed by patient verbally. FALL SCREENING: Has the patient had 2 falls in the last year or 1 fall with injury or currently using an Ambulatory Assistive Device (Walker, Cane, Wheelchair, Crutches, etc.)? No PATIENT GENDER DATA: Female. status: : No status: NO. PATIENT RELEVANT IMPLANT DATA REVIEWED: Not Applicable RADIOLOGY DEPARTMENT: Mammography PERIPHERAL IV DATA: Not applicable SIGNED BY: Edna Hannon August 12, 2023 1:19 PM Radiology Service Progress Note PATIENT NAME: Ronald Ashley DATE OF SERVICE: August 12, 2023 TIME: 1:19 PM PATIENT IDENTITY VERIFICATION COMPLETED USING TWO (2) IDENTIFIERS: Name and Date of confirmed by patient verbally. FALL SCREENING: Has the patient had 2 falls in the last year or 1 fall with injury or currently using an Ambulatory Assistive Device (Walker, Cane, Wheelchair, Crutches, etc.)? No PATIENT GENDER DATA: Female. status: : No status: NO. PATIENT RELEVANT IMPLANT DATA REVIEWED: Not Applicable RADIOLOGY DEPARTMENT: Mammography PERIPHERAL IV DATA: Not applicable SIGNED BY: Romie Hannono [employer] August 12, 2023 1:19 PM [facility] 08-12-2023 History of Present illness Narrative Radiology Service Progress Note PATIENT NAME: Ronald Ashley DATE OF SERVICE: August 12, 2023 TIME: 1:19 PM PATIENT IDENTITY VERIFICATION COMPLETED USING TWO (2) IDENTIFIERS: Name and Date of confirmed by patient verbally. FALL SCREENING: Has the patient had 2 falls in the last year or 1 fall with injury or currently using an Ambulatory Assistive Device (Walker, Cane, Wheelchair, Crutches, etc.)? No PATIENT GENDER DATA: Female. status: : No status: NO. PATIENT RELEVANT IMPLANT DATA REVIEWED: Not Applicable RADIOLOGY DEPARTMENT: Mammography PERIPHERAL IV DATA: Not applicable SIGNED BY: Tanya Mantilla Romieo Maira August 12, 2023 1:19 PM Radiology Service Progress Note PATIENT NAME: Ronald Ashley DATE OF SERVICE: August 12, 2023 TIME: 1:19 PM PATIENT IDENTITY VERIFICATION COMPLETED USING TWO (2) IDENTIFIERS: Name and Date of confirmed by patient verbally. FALL SCREENING: Has the patient had 2 falls in the last year or 1 fall with injury or currently using an Ambulatory Assistive Device (Walker, Cane, Wheelchair, Crutches, etc.)? No PATIENT GENDER DATA: Female. status: : No status: NO. PATIENT RELEVANT IMPLANT DATA REVIEWED: Not Applicable RADIOLOGY DEPARTMENT: Mammography PERIPHERAL IV DATA: Not applicable SIGNED BY: Romie Hannono Maira August 12, 2023 1:19 PM documented in this encounter [facility] 07-25-2023 Miscellaneous Notes Patient notified of results, verbalizes understanding of instructions. Keren Angel LPN Can you please call the patient and let her know I reviewed her MRA brain results, imaging showed Stable MRA of the brain compared to 10/17/2015 with stable right cavernous ICA aneurysm. No further testing is needed at this time. Please let me know if she has any questions. Thank you. Mao Sweet APRN.CNP documented in this encounter [facility] 07-25-2023 Note HNO ID: [id number] Author: Makayla Rodriguez RT(R) Service: ? Author Type: Technologist Type: Progress Notes Filed: 07/25/2023 7:50 AM Note Text: Radiology Service Progress Note PATIENT NAME: Ronald Ashley DATE OF SERVICE: July 25, 2023 TIME: 7:50 AM PATIENT IDENTITY VERIFICATION COMPLETED USING TWO (2) IDENTIFIERS: Name and Date of confirmed by patient verbally. FALL SCREENING: Has the patient had 2 falls in the last year or 1 fall with injury or currently using an Ambulatory Assistive Device (Walker, Cane, Wheelchair, Crutches, etc.)? No PATIENT GENDER DATA: Female. status: : No status: NO. PATIENT RELEVANT IMPLANT DATA REVIEWED: Yes RADIOLOGY DEPARTMENT: MR; Exam(s) Completed: Head: [place] of [place] MRA PERIPHERAL IV DATA: Not applicable SIGNED BY: RT Richard(Marcy) July 25, 2023 7:50 AM [facility] 07-18-2023 Note HNO ID: [id number] Author: Mao Sweet APRN.CNP Service: ? Author Type: Nurse Practitioner Type: Progress Notes Filed: 07/18/2023 12:17 PM Note Text: This is a 73 year old female who presents today with: Patient presents with: Acute Visit: left shoulder pain for years HISTORY OF PRESENT ILLNESS: Ronald Ashley is a 73 year old female. Patient presents with: Acute Visit: left shoulder pain for years Here in the office for bilateral shoulder pain. Has been on going for years. No injury to the area. Following with Rheumatology pao, next follow up in 1 year, taking Plaquenil . 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 Was told she has osteoarthritis. No records for my review at this time. Has noticed increased shoulder pain the past several months. Started Fosamax for osteoporosis. Has noticed pain on left side of the head, seems to radiate from the left side of the neck. Refers that she has an aneurism that is currently being monitored. 2015: MRA Brain IMPRESSION: 1. Vertebral artery and internal carotid artery changes suggestive of fibromuscular dysplasia. 2. 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 PAST MEDICAL HISTORY: PAST MEDICAL HISTORY Diagnosis Date Aneurysm of unspecified site (HCC) 10/24 right carotid cavernous aneurysm per MRA Diverticulosis of colon (without mention of hemorrhage) Lupus (HCC) Osteoporosis 10/01/2013 Other and unspecified hyperlipidemia Unspecified essential hypertension Unspecified transient cerebral ischemia 10/24 Varicose veins of other sites PAST SURGICAL HISTORY Procedure Laterality Date COLONOSCOPY FLX DX W/COLLJ SPEC WHEN PFRMD 06/23/2007 Colonoscopy ALLERGIES Patient has no known allergies. MEDICATIONS Current Outpatient Medications Medication Sig lisinopril (ZESTRIL) 10 mg tablet Take 1 tablet by mouth once daily. hydrOXYchloroQUINE (PLAQUENIL) 200 mg tablet Take 1 tablet by mouth once daily. Pt is to take 1 tablet once daily per Dr. Damien Dillard atorvastatin (LIPITOR) 40 mg tablet Take 1 tablet by mouth once daily. fluticasone (FLONASE) 50 mcg/actuation nasal spray Use 2 Sprays in each nostril once daily. Rinse mouth after use. predniSONE (DELTASONE) 10 mg tablet TAKE 1 TABLET DAILY for 3-5 days with flare predniSONE (DELTASONE) 20 mg tablet Take 2 tablets by mouth once daily. For 3-5 days as needed vyidoujs-vhx-QQ-Ca carb-vit K (ONE-A-DAY WOMEN'S 50+) 400 mcg-500 mg calcium-20 mcg tab Take 1 tablet by mouth once daily. No current facility-administered medications for this visit. FAMILY HISTORY Problem Relation Age of Onset Heart Mother Lipids Mother other (Other) Mother aneurysm Brain Heart Father Lipids Father other (Other) Father aneurysm AAA Heart Sister Lipids Sister Social History Tobacco Use Smoking status: Never Smokeless tobacco: Never Vaping Use Vaping Use: Never used Substance Use Topics Alcohol use: No Drug use: No REVIEW OF SYSTEMS GENERAL: No weight loss, malaise or fevers/chills HEENT: Negative for frequent or significant headaches, No changes in hearing or vision. NECK: Negative for lumps, goiter, pain and significant neck swelling RESPIRATORY: Negative for cough, hemoptysis, wheezing, dyspnea or shortness of breath CARDIOVASCULAR: Negative for chest pain, leg swelling, orthopnea, or palpitations GI: No nausea, vomiting, or diarrhea/constipation. No hematochezia/melena. No heartburn or reflux symptoms. : No history of dysuria, frequency or incontinence MUSCULOSKELETAL: Negative for joint pain or swelling. + Shoulder Pain SKIN: Negative for lesions, rash, and itching ENDOCRINE: Negative for cold or heat intolerance, polyuria, polydipsia and goiter NEURO: + Head pain MOOD: Negative for depression, anxiety, or suicidal ideation. EXAM: BP 108/72 Pulse 84 Resp 16 Wt 70.8 kg (156 lb) SpO2 98% BMI 25.96 kg/m? PHYSICAL EXAM: General Appearance: Well appearing, alert, in no acute distress, well-hydrated, well nourished. Skin: Skin color, texture, turgor normal, no suspicious rashes or lesions. Head: Normocephalic, no masses, lesions, tenderness or abnormalities. Eyes: Anicteric sclera. Pupils are equally round and reactive to light. Extraocular movements are intact. Lungs: Lungs clear to auscultation. No wheezing, rhonchi, rales. Heart: RRR without murmur, gallop, or rubs. No ectopy. Extremities: No deformities, edema, skin discoloration, clubbing or cyanosis. Good capillary refill. Musculoskeletal: Moderate bilateral trapezius muscle tension noted. Full range of motion of shoulders. Tenderness noted on the left side of the neck, no swelling or color change noted. No pain with palpation along the skull or scalp. Peripheral Pulses: Normal, Capillary refill <2secs, strong peripheral pulses, Pulses palpable. Neurologic: Gait normal. Reflexes (more content not included)... [facility] 07-09-2023 History of Present illness Narrative Images from the original note were not included. RHEUMATOLOGY EST PATIENT VISIT Patients name: Ronald Ashley : 1950 Today's date: 07/09/2023 Reason for visit: Establish care Disease summary: DJD ->SLE/RA dx by Dr. Sinclair -> No evidence of SLE/RA Status: controlled. Serology: +ve -ve IRIS, RF, CCP, comps WNL Radiology: WNL Current Meds: HCQ 400mg Pain control: Prior Meds: HPC: This is a 73 y.o. female with a pmhx of GERD, HTN, HLD, osteoporosis, aneurysm of the right cavernous portion of the right ICA, who presents for f/u. Previously diagnosed SLE/RA by Dr. Sinclair. Patient reports to me she was previously diagnosed by an outside physician(yahir) with these issues. Patient denies ever having significant joint swelling or redness. Patient reports that she does engage in home physical therapy and remains active/mobile with various exercise regimens that she performs on a daily basis. Patient has been taking Plaquenil for many years. She feels that this has improved her symptoms and she does not report any current joint swelling or redness. She denies any hair loss/mouth ulcers/blood abnormalities. Prior Rheum appts: Yahir Dec 2022 Interim: The patient, Ronald, reports having undergone blood tests, eye tests, and bone density tests. She mentions a previous bone density test performed at a [facility], but this was not a comprehensive test. Ronald has not been on treatment for osteoporosis and has not been taking vitamin D supplements. She was previously prescribed vitamin D but was taken off of it by another provider. Ronald is currently taking medication for lupus, blood pressure, and cholesterol. She denies taking steroids or methotrexate. She first saw her previous provider, Fuentes, in 2009 and is unsure if any blood tests from that time are available. Ronald has no concerns about her eye exam results and is open to staying on Plaquenil if it is not causing any issues. I have reviewed the patient's medical history in detail and updated the computerized patient record. Past Medical History: Diagnosis Date Aneurysm of unspecified site (HCC) Diverticulosis of colon Hyperlipidemia Hypertension Lupus (HCC) Osteoarthritis Transient cerebral ischemia Varicose veins of other specified sites Past Surgical History: Procedure Laterality Date COLONOSCOPY Social History Tobacco Use Smoking status: Never Smokeless tobacco: Never Vaping Use Vaping Use: Never used Substance Use Topics Alcohol use: Not Currently Drug use: Never Family History Problem Relation Age of Onset Heart disease Mother Aneurysm Mother Hyperlipidemia Mother Hyperlipidemia Father Aneurysm Father Heart disease Father No Known Allergies No outpatient medications have been marked as taking for the 07/09/23 encounter (Appointment) with Damien Dillard MD. Review of Systems: General Constitutional: Denied fevers, chills, anorexia, weight loss, or night sweats Eyes: denied blurry vision, no dry eyes, no RP ENT: denied nasal drainage, sinus pressure, nasal ulcers Mouth: denied oral ulcers, dry mouth Lymphatics: no new adenopathy in cervical, supraclavicular, axillary, inguinal regions Respiratory: no cough, SOB CV: denied palpitations, chest pain/pressure, PND, orthopnea. GI: denied abd pain, n/v/d, constipation, melena. : denied dysuria, urgency, frequency or hematuria. Skin: no rashes or lesions Musculoskeletal: as per HPI Hematologic/lmmunologic: no adenopathy, bleeding, easy bruisiality or recurrent infection. Neurology: Denied new headaches, speech/balance/coordination problems. Denied new focal numbness or weakness of extremities Psych: denied anxiety, depression or mood swings A 10 point review of systems was completed. Physical Exam: BP 126/77 Pulse 89 Wt 70.3 kg (155 lb) BMI 25.79 kg/m Gen: NAD, resting comfortably,Alert, cooperative, no distress, appears stated age HEENT: NCAT, no temporal wasting, EOMI, perrl, anicteric sclerae, mmm, no op lesions Neck: supple, no thyromegaly or LAD, no bruits Lymphatics: no cervical, axillary, or inguinal adenopathy Chest: Good a/e b/l, no added sounds, no respiratory distress CV: RRR, no m/r/g, normal S1, S2 Abd: soft, nontender, nondistended, +BS, no hepatosplenomegaly Ext: no clubbing, cyanosis or edema MSK: No synovitis of the MCPs or PIPs. Crepitus of the knees no effusion or warmth. Skin: no rashes or lesions Neuro: no focal deficits, moves all four extremities Psych: Mood and affect appropriate DATA: I have reviewed lab work and imaging. Labs:reviewed. Imaging: reviewed. Health Maintenance Due Topic Date Due Dexa Scan Never done Wellness Visit Never done Depression Screening (PHQ-2/9) Never done Hepatitis C Screening Never done Zoster Vaccines (1 of 2) Never done Falls Risk Assessment Never done Tetanus: Every 10yrs 03/21/2020 COVID-19 Vaccine (4 - Moderna series) 02/01/2022 Mammogram 05/22/2023 Colorectal Cancer Screening/Monitoring 06/07/2023 Assessment & Plan DJD, previously dx SLE/RA by Dr. Sinclair. No evidence of SLE/RA. Serology neg, xrays WNL. Patient denies h/o sx in keeping with SLE/RA. by outside physician, we will work this up from scratch - Plan: Patient can stay on HCQ if she wants to, eye exam wnl. - no further w/u. Trochanteric bursitis of left hip - Plan: Patient may return for injections CMC DJD(carpometacarpal degenerative joint disease), localized primary, right - Plan: Patient may return for injections Long-term use of hydroxychloroquine - no evidence of HCQ toxicity (media file) - Plan: Advised patient that the purpose of screening is to detect retinal toxicity, if it develops, before the vision is affected. The primary screening tests are automated visual giron and spectral domain optical coherence tomography (SD-OCT). Early OCT changes are almost always asymptomatic and may remain so if HCQ is discontinued. -I advised the patient to undergo assessment of ocular health within a year of starting long-term antimalarial drug therapy. The baseline examination should include a fundus examination of the macula to rule out any underlying disease that may interfere with the interpretation of screening tests. -Advised patient that we prefer annual screening exams however the AAO has suggested that for patients with a normal baseline exam who do not have major risk factors for toxic retinopathy, follow-up examinations may be deferred until there have been five years of exposure. -Major risk factors for toxic retinopathy include a daily dose of HCQ greater than 5 mg/kg real body weight,antimalarial use for greater than five years, the presence of renal disease, concomitant tamoxifen use, and/or the presence of macular disease. Age-related osteoporosis without current pathological fracture - Plan: Jan 2023 DEXA done at [place] -> Jan 2025 - Start Fosamax 70mg/week Vitamin D supplementation recommended, optimal dose is the dose necessary to achieve Vitamin D 25-OH blood level in range of 40-50 ng/mL. (Vitamin D 1000 IU total a day, or dose necessary to achieve a Vitamin D 25-OH blood level in range of 40-50 ng/mL). -Recommended daily dose of calcium: 1200mg total a day in divided doses. Calcium from dietary sources, if not sufficient, or if with h/o calcium nephrolithiasis would recommend Calcium Citrate supplement, as it is recommended to avoid caclium carbonate products, which as main dietary calcium source. -Regular weight-bearing and muscle-strengthening exercise -Avoidance of tobacco smoking, excessive alcohol intake and excessive caffeine intake. -Fall and fracture precautions The patient indicates understanding of these issues and agrees with the plan. Return to clinic in 5 month(s) Telehealth appointments ok. Damien Dillard MD Swimming Coach Or Instructor Egg Processing Supervisor Note: To expedite correspondence this note was generated by [employer] voice recognition software. Some grammatical or spelling errors may occur using the system. documented in this encounter [facility] 06-26-2023 Note Patient Outreach (IN [facility]) RONALD ASHLEY ([id number]) 1950 F Date Time Provider Department 06/26/23 MIGDALIA TENA During your visit today, we recorded the following information about you: Allergies As of Date: 06/26/2023 (No Known Allergies) Date Reviewed: 02/04/2023 Reviewed by: Nika Rai Ma - Fully Assessed Visit Diagnosis:Encounter for screening mammogram for breast cancer [Z12.31] Order(s):[facility] SCREENING [[id number]] Order #: [id number] FUTURE Prescriptions as of 07/01/2023 - lisinopril (ZESTRIL) 10 mg tablet Take 1 tablet by mouth once daily. - hydrOXYchloroQUINE (PLAQUENIL) 200 mg tablet Take 1 tablet by mouth once daily. Pt is to take 1 tablet once daily per Dr. Damien Dillard - atorvastatin (LIPITOR) 40 mg tablet Take 1 tablet by mouth once daily. - fluticasone (FLONASE) 50 mcg/actuation nasal spray Use 2 Sprays in each nostril once daily. Rinse mouth after use. - predniSONE (DELTASONE) 10 mg tablet TAKE 1 TABLET DAILY for 3-5 days with flare - predniSONE (DELTASONE) 20 mg tablet Take 2 tablets by mouth once daily. For 3-5 days as needed - xhhtvaxi-rmo-ZX-Ca carb-vit K (ONE-A-DAY WOMEN'S 50+) 400 mcg-500 mg calcium-20 mcg tab Take 1 tablet by mouth once daily. Meds Comments as of 04/19/2022: [facility] [place] Problem List As Of Date 06/26/2023 Noted Resolved Hyperlipemia [E78.5] Essential hypertension [I10] ESOPHAGEAL REFLUX [K21.9] 06/04/2006 TM JOINT DISORDER, UNSPEC [M26.609] 07/30/2006 Other cerebrovascular disease [I67.89] 11/06/2007 LUPUS ERYTHEMATOSUS [L93.0] 01/31/2009 Pain in limb [M79.609] 03/03/2012 Osteoporosis [M81.0] 10/01/2013 Arthritis of left shoulder region [M19.012] 06/12/2018 Aneurysm of cavernous portion of right internal*07/26/2021 Encounter Status:Closed by MILLI ECHEVERRIA on 07/01/23 [facility] 02-11-2023 Note HNO ID: [id number] Author: RT Juan Pablo(R) Service: ? Author Type: Technologist Type: Progress Notes Filed: 02/11/2023 9:27 AM Note Text: Radiology Service Progress Note PATIENT NAME: Ronald Ashley DATE OF SERVICE: February 11, 2023 TIME: 9:15 AM PATIENT IDENTITY VERIFICATION COMPLETED USING TWO (2) IDENTIFIERS: Name and Date of confirmed by patient verbally. FALL SCREENING: Has the patient had 2 falls in the last year or 1 fall with injury or currently using an Ambulatory Assistive Device (Walker, Cane, Wheelchair, Crutches, etc.)? No PATIENT GENDER DATA: Female. status: : No status: NO. PATIENT RELEVANT IMPLANT DATA REVIEWED: Not Applicable RADIOLOGY DEPARTMENT: Bone Density PERIPHERAL IV DATA: Not applicable SIGNED BY: Aram Domínguez, RT(R) February 11, 2023 9:15 AM [facility] 02-04-2023 Note HNO ID: [id number] Author: Migdalia Tena MD Service: ? Author Type: Physician Type: Progress Notes Filed: 02/04/2023 7:02 PM Note Text: Chief Complaint Patient presents with: 6 Month Exam HPI Ronald Ashley is a 72 year old female who presents here today for 6 month follow up. Denies feeling depressed or hopeless. Has Advanced directive and Health Care POA. No bowel, Gi, or urinary issues. Lipid: Taking Lipitor 40 mg daily. Tolerating well, no myalgia or gi upset. Is doing some exercises and strength exercise with bands and some other exercises. She said she did a free test at the hospital on the arteries, arms and legs, life line screening test. Results are to be mailed to provider and pt. She had Carotid test [place] [address] Mccloud, with minimal blockage; recommendation to recheck in 2-3 years.. HTN: Taking Lisinopril 10 mg daily. Denies any chest pains, dizziness, or SOB. Does check BP at home with readings running around 132/82. Lupus: Has a new Egg Processing Supervisor that she is seeing at [facility] Dr. Damien Dillard, who prescribes Plaquenil 200 mg to take once daily. Uses Prednisone prn flare ups which she is getting from Egg Processing Supervisor. Her Egg Processing Supervisor wants her to have a BMD test done. This has been ordered for pt to do with [facility]. Will send copy of BMD to Dr. Dillard. Past medical history, appointments, medications, allergies reviewed. Previous Medical History PAST MEDICAL HISTORY Diagnosis Date Aneurysm of unspecified site (HCC) 10/24 right carotid cavernous aneurysm per MRA Diverticulosis of colon (without mention of hemorrhage) Lupus (HCC) Osteoporosis 10/01/2013 Other and unspecified hyperlipidemia Unspecified essential hypertension Unspecified transient cerebral ischemia 10/24 Varicose veins of other sites Previous Surgical History PAST SURGICAL HISTORY Procedure Laterality Date COLONOSCOPY FLX DX W/COLLJ SPEC WHEN PFRMD 06/23/2007 Colonoscopy Family History FAMILY HISTORY Problem Relation Age of Onset Heart Mother Lipids Mother other (Other) Mother aneurysm Brain Heart Father Lipids Father other (Other) Father aneurysm AAA Heart Sister Lipids Sister Patient Allergies ALLERGIES No Known Allergies Current Medications Current Outpatient Medications on File Prior to Visit Medication Sig atorvastatin (LIPITOR) 40 mg tablet Take 1 tablet by mouth once daily. fluticasone (FLONASE) 50 mcg/actuation nasal spray Use 2 Sprays in each nostril once daily. Rinse mouth after use. hydrOXYchloroQUINE (PLAQUENIL) 200 mg tablet Take 1 tablet by mouth once daily. Pt is to take 1 tablet once daily per Dr. Sinclair lisinopril (ZESTRIL, PRINIVIL) 10 mg tablet Take 1 tablet by mouth once daily. predniSONE (DELTASONE) 10 mg tablet TAKE 1 TABLET DAILY for 3-5 days with flare predniSONE (DELTASONE) 20 mg tablet Take 2 tablets by mouth once daily. For 3-5 days as needed zkjmufzg-zob-LE-Ca carb-vit K (ONE-A-DAY WOMEN'S 50+) 400 mcg-500 mg calcium-20 mcg tab Take 1 tablet by mouth once daily. No current facility-administered medications on file prior to visit. Social History Social History Tobacco Use Smoking status: Never Smokeless tobacco: Never Vaping Use Vaping Use: Never used Substance Use Topics Alcohol use: No Drug use: No EXAM: BP 130/80 Pulse 76 Resp 16 Wt 73.7 kg (162 lb 8 oz) BMI 27.04 kg/m? General Appearance: Well appearing, alert, in no acute distress, well-hydrated, well nourished.. Lungs: Lungs clear to auscultation. No wheezing, rhonchi, rales.. Heart: RRR without murmur, gallop, or rubs. No ectopy. Health Maintenance List HEPATITIS C SCREENING Never done SHINGRIX VACCINE(1 of 2) Never done DTAP,TDAP,TD(1 - Tdap) due on 03/22/2010 COVID-19 VACCINE(4 - Booster for Moderna series) due on 02/01/2022 ADVANCE DIRECTIVE DISCUSSION due on 11/18/2022 DEPRESSION ASSESSMENT Never done INFLUENZA(1) due on 05/17/2023 MAMMOGRAM due on 05/22/2023 COLORECTAL CANCER SCREENING due on 06/07/2023 ANNUAL PCP TEAM CHRONIC DISEASE VISIT due on 12/06/2023 BP CONTROLLED (<130/80) due on 12/06/2023 DIABETES SCREEN due on 08/01/2025 LIPID SCREEN due on 08/01/2027 BONE DENSITY Completed PNEUMOCOCCAL: 65+ Completed Data reviewed Appointment on 01/28/2023 Component Date Value Protein, Total 01/28/2023 7.4 Albumin 01/28/2023 4.6 Calcium, Total 01/28/2023 9.8 Bilirubin, Total 01/28/2023 0.6 Alkaline Phosphatase 01/28/2023 102 AST 01/28/2023 23 ALT 01/28/2023 18 Glucose 01/28/2023 101 (A) BUN 01/28/2023 12 Creatinine 01/28/2023 1.03 (A) Sodium 01/28/2023 139 Potassium 01/28/2023 4.1 Chloride 01/28/2023 102 CO2 01/28/2023 27 Anion Gap 01/28/2023 10 Estimated Glomerular Tr* 01/28/2023 58 (A) Cholesterol, Total 01/28/2023 215 (A) Triglyceride 01/28/2023 186 (A) HDL Cholesterol 01/28/2023 101 Non HDL Cholesterol 01/28/2023 114 Fasting Time 01/28/2023 12 VLDL Chol (more content not included)... [facility] 02-04-2023 History of Present illness Narrative Chief Complaint Patient presents with: 6 Month Exam HPI Ronald Ashley is a 72 year old female who presents here today for 6 month follow up. Denies feeling depressed or hopeless. Has Advanced directive and Health Care POA. No bowel, Gi, or urinary issues. Lipid: Taking Lipitor 40 mg daily. Tolerating well, no myalgia or gi upset. Is doing some exercises and strength exercise with bands and some other exercises. She said she did a free test at the hospital on the arteries, arms and legs, life line screening test. Results are to be mailed to provider and pt. She had Carotid test done in [address] Mccloud, with minimal blockage; recommendation to recheck in 2-3 years.. HTN: Taking Lisinopril 10 mg daily. Denies any chest pains, dizziness, or SOB. Does check BP at home with readings running around 132/82. Lupus: Has a new Egg Processing Supervisor that she is seeing at [facility] Dr. Damien Dillard, who prescribes Plaquenil 200 mg to take once daily. Uses Prednisone prn flare ups which she is getting from Egg Processing Supervisor. Her Egg Processing Supervisor wants her to have a BMD test done. This has been ordered for pt to do with [facility]. Will send copy of BMD to Dr. Dillard. Past medical history, appointments, medications, allergies reviewed. Previous Medical History PAST MEDICAL HISTORY Diagnosis Date Aneurysm of unspecified site (HCC) 10/24 right carotid cavernous aneurysm per MRA Diverticulosis of colon (without mention of hemorrhage) Lupus (HCC) Osteoporosis 10/01/2013 Other and unspecified hyperlipidemia Unspecified essential hypertension Unspecified transient cerebral ischemia 10/24 Varicose veins of other sites Previous Surgical History PAST SURGICAL HISTORY Procedure Laterality Date COLONOSCOPY FLX DX W/COLLJ SPEC WHEN PFRMD 06/23/2007 Colonoscopy Family History FAMILY HISTORY Problem Relation Age of Onset Heart Mother Lipids Mother other (Other) Mother aneurysm Brain Heart Father Lipids Father other (Other) Father aneurysm AAA Heart Sister Lipids Sister Patient Allergies ALLERGIES No Known Allergies Current Medications Current Outpatient Medications on File Prior to Visit Medication Sig atorvastatin (LIPITOR) 40 mg tablet Take 1 tablet by mouth once daily. fluticasone (FLONASE) 50 mcg/actuation nasal spray Use 2 Sprays in each nostril once daily. Rinse mouth after use. hydrOXYchloroQUINE (PLAQUENIL) 200 mg tablet Take 1 tablet by mouth once daily. Pt is to take 1 tablet once daily per Dr. Sinclair lisinopril (ZESTRIL, PRINIVIL) 10 mg tablet Take 1 tablet by mouth once daily. predniSONE (DELTASONE) 10 mg tablet TAKE 1 TABLET DAILY for 3-5 days with flare predniSONE (DELTASONE) 20 mg tablet Take 2 tablets by mouth once daily. For 3-5 days as needed uhfpqlcc-vai-UF-Ca carb-vit K (ONE-A-DAY WOMEN'S 50+) 400 mcg-500 mg calcium-20 mcg tab Take 1 tablet by mouth once daily. No current facility-administered medications on file prior to visit. Social History Social History Tobacco Use Smoking status: Never Smokeless tobacco: Never Vaping Use Vaping Use: Never used Substance Use Topics Alcohol use: No Drug use: No EXAM: BP 130/80 Pulse 76 Resp 16 Wt 73.7 kg (162 lb 8 oz) BMI 27.04 kg/m General Appearance: Well appearing, alert, in no acute distress, well-hydrated, well nourished.. Lungs: Lungs clear to auscultation. No wheezing, rhonchi, rales.. Heart: RRR without murmur, gallop, or rubs. No ectopy. Health Maintenance List HEPATITIS C SCREENING Never done SHINGRIX VACCINE(1 of 2) Never done DTAP,TDAP,TD(1 - Tdap) due on 03/22/2010 COVID-19 VACCINE(4 - Booster for Moderna series) due on 02/01/2022 ADVANCE DIRECTIVE DISCUSSION due on 11/18/2022 DEPRESSION ASSESSMENT Never done INFLUENZA(1) due on 05/17/2023 MAMMOGRAM due on 05/22/2023 COLORECTAL CANCER SCREENING due on 06/07/2023 ANNUAL PCP TEAM CHRONIC DISEASE VISIT due on 12/06/2023 BP CONTROLLED (<130/80) due on 12/06/2023 DIABETES SCREEN due on 08/01/2025 LIPID SCREEN due on 08/01/2027 BONE DENSITY Completed PNEUMOCOCCAL: 65+ Completed Data reviewed Appointment on 01/28/2023 Component Date Value Protein, Total 01/28/2023 7.4 Albumin 01/28/2023 4.6 Calcium, Total 01/28/2023 9.8 Bilirubin, Total 01/28/2023 0.6 Alkaline Phosphatase 01/28/2023 102 AST 01/28/2023 23 ALT 01/28/2023 18 Glucose 01/28/2023 101 (A) BUN 01/28/2023 12 Creatinine 01/28/2023 1.03 (A) Sodium 01/28/2023 139 Potassium 01/28/2023 4.1 Chloride 01/28/2023 102 CO2 01/28/2023 27 Anion Gap 01/28/2023 10 Estimated Glomerular Tr* 01/28/2023 58 (A) Cholesterol, Total 01/28/2023 215 (A) Triglyceride 01/28/2023 186 (A) HDL Cholesterol 01/28/2023 101 Non HDL Cholesterol 01/28/2023 114 Fasting Time 01/28/2023 12 VLDL Cholesterol 01/28/2023 37 (A) TC:HDL Ratio 01/28/2023 2.13 LDL Cholesterol 01/28/2023 77 LDL:HDL Ratio 01/28/2023 0.76 ASSESSMENT/PLAN: 1. Essential hypertension - ICD9: 401.9, ICD10: I10 (primary diagnosis) - good control - Continue current medication(s) - Recommended regular aerobic exercise. - Recommend home blood pressure monitoring, to bring results in on next visit - Goal of BP <130/80 2. Mixed hyperlipidemia - ICD9: 272.2, ICD10: E78.2 - good control - Continue current medication. - Encouraged following a low fat, low cholesterol diet. - Discussed the benefits of regular aerobic exercise and weight loss. 3. Lupus erythematosus, unspecified form - ICD9: 695.4, ICD10: L93.0 Continue current medications. Continue with Rheum Dr. Dillard 4. Encounter for screening for osteoporosis - ICD9: V82.81, ICD10: Z13.820 BMD test ordered, will fax copy of results to Dr. Dillard Follow up in 6 months with fasting labs prior. I agree with the Chief Complaint, ROS, and Past Histories independently gathered by the clinical support associate and the remaining scribed note accurately describes my personal service to the patient. Medical Decision Making: Problems: Moderate: 2+ stable chronic illnesses Data: Unique test result(s) reviewed: 2 Unique test(s) ordered: 3+ Risk: Moderate: Drug management Medical Decision Making Level: 4 - Moderate Migdalia Tena MD The documentation for this note was completed by Nika Rai Ma acting as scribe for Migdalia Tena MD. February 04, 2023 12:43 PM. Nika Rai Ma documented in this encounter [facility] 02-04-2023 Instructions Nika Rai Ma - 02/04/2023 12:56 PM EDT BONE MINERAL DENSITY PATIENT INSTRUCTIONS ======== Bone mineral density testing measures the amount of calcium in certain parts of your bones. This information determines how strong your bones are. The test is used to detect osteoporosis, a disease in which the bone's mineral content and density are low, increasing a person's risk of fractures. The lumbar spine (lower back) and the hip are the skeletal sites usually examined. For the test, remember that: 1. You cannot take this test if you are . 2. Eat a normal diet on the day of the test. 3. Take your medications as you normally would. 4. DO NOT take calcium supplements (such as Tums) for 24 hours before the test. 5. On the day of the test, leave valuables (jewelry or credit cards) at home. 6. The test should be performed prior to oral, rectal or IV contrast studies, or at least 7 days after any of these studies. For the test, you may be asked to wear a hospital gown. You will lie on your back, on a padded table, in a comfortable position. Generally, you can resume your usual activities immediately. documented in this encounter [facility] 01-07-2023 History of Present illness Narrative Images from the original note were not included. RHEUMATOLOGY NEW PATIENT VISIT Patients name: Ronald Ashley : 1950 Today's date: 01/07/2023 Reason for visit: Establish care Disease summary: SLE/RA diagnosed by Dr. Sinclair. Status: controlled. Serology: +ve -ve Radiology: Current Meds: Pain control: Prior Meds: HPC: This is a 72 y.o. 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 Patient reports to me she was previously diagnosed by an outside physician(yahir) with these issues. Patient denies ever having significant joint swelling or redness. Patient reports that she does engage in home physical therapy and remains active/mobile with various exercise regimens that she performs on a daily basis. Patient has been taking Plaquenil for many years. She feels that this has improved her symptoms and she does not report any current joint swelling or redness. She denies any hair loss/mouth ulcers/blood abnormalities. Prior Rheum appts: Yahir Interim: I have reviewed the patient's medical history in detail and updated the computerized patient record. Past Medical History: Diagnosis Date Aneurysm of unspecified site (HCC) Diverticulosis of colon Hyperlipidemia Hypertension Lupus (HCC) Osteoarthritis Transient cerebral ischemia Varicose veins of other specified sites Past Surgical History: Procedure Laterality Date COLONOSCOPY Social History Tobacco Use Smoking status: Never Smokeless tobacco: Never Vaping Use Vaping Use: Never used Substance Use Topics Alcohol use: Not Currently Drug use: Never Family History Problem Relation Age of Onset Heart disease Mother Aneurysm Mother Hyperlipidemia Mother Hyperlipidemia Father Aneurysm Father Heart disease Father No Known Allergies Outpatient Medications Marked as Taking for the 01/07/23 encounter (Office Visit) with Damien Dillard MD Medication Sig Dispense Refill atorvastatin (LIPITOR) 40 MG tablet Take 1 (one) tablet (40 mg total) by mouth daily . fluticasone propionate (FLONASE) 50 mcg/actuation nasal spray Use 2 Sprays in each nostril once daily. Rinse mouth after use. hydrOXYchloroQUINE (PLAQUENIL) 200 mg tablet Take 1 (one) tablet (200 mg total) by mouth daily . lisinopriL (PRINIVIL,ZESTRIL) 10 MG tablet Take 1 (one) tablet (10 mg total) by mouth daily . Review of Systems: General Constitutional: Denied fevers, chills, anorexia, weight loss, or night sweats Eyes: denied blurry vision, no dry eyes, no RP ENT: denied nasal drainage, sinus pressure, nasal ulcers Mouth: denied oral ulcers, dry mouth Lymphatics: no new adenopathy in cervical, supraclavicular, axillary, inguinal regions Respiratory: no cough, SOB CV: denied palpitations, chest pain/pressure, PND, orthopnea. GI: denied abd pain, n/v/d, constipation, melena. : denied dysuria, urgency, frequency or hematuria. Skin: no rashes or lesions Musculoskeletal: as per HPI Hematologic/lmmunologic: no adenopathy, bleeding, easy bruisiality or recurrent infection. Neurology: Denied new headaches, speech/balance/coordination problems. Denied new focal numbness or weakness of extremities Psych: denied anxiety, depression or mood swings A 10 point review of systems was completed. Physical Exam: BP 124/76 Pulse 81 Ht 5' 5 Wt 73.9 kg (163 lb) BMI 27.12 kg/m Gen: NAD, resting comfortably,Alert, cooperative, no distress, appears stated age HEENT: NCAT, no temporal wasting, EOMI, perrl, anicteric sclerae, mmm, no op lesions Neck: supple, no thyromegaly or LAD, no bruits Lymphatics: no cervical, axillary, or inguinal adenopathy Chest: Good a/e b/l, no added sounds, no respiratory distress CV: RRR, no m/r/g, normal S1, S2 Abd: soft, nontender, nondistended, +BS, no hepatosplenomegaly Ext: no clubbing, cyanosis or edema MSK: No synovitis of the MCPs or PIPs. Crepitus of the knees no effusion or warmth. Skin: no rashes or lesions Neuro: no focal deficits, moves all four extremities Psych: Mood and affect appropriate DATA: I have reviewed lab work and imaging. Labs:reviewed. Imaging: reviewed. Health Maintenance Due Topic Date Due Dexa Scan Never done Wellness Visit Never done Depression Screening (PHQ-2/9) Never done Hepatitis C Screening Never done Mammogram Never done Zoster Vaccines (1 of 2) Never done Falls Risk Assessment Never done Tetanus: Every 10yrs 03/21/2020 COVID-19 Vaccine (4 - Booster for Moderna series) 02/01/2022 Sequential Influenza Vaccine (1) 07/19/2022 Assessment & Plan H/oh SLE/RA-diagnosed by outside physician, we will work this up from scratch - Plan: Patient may continue her HCQ 400 mg/day - IRIS, Nuclear antigen antibody, C3 Complement, C4 Complement, Anti-DNA Double-Stranded Antibody, Urinalysis, Protein / Creatinine Ratio, Urine, CBC and differential, Basic metabolic panel, Hepatic function panel, Rheumatoid factor, CCP Antibody Trochanteric bursitis of left hip - Plan: Patient may return for injections CMC DJD(carpometacarpal degenerative joint disease), localized primary, right - Plan: Patient may return for injections Long-term use of hydroxychloroquine - Plan: Advised patient that the purpose of screening is to detect retinal toxicity, if it develops, before the vision is affected. The primary screening tests are automated visual giron and spectral domain optical coherence tomography (SD-OCT). Early OCT changes are almost always asymptomatic and may remain so if HCQ is discontinued. -I advised the patient to undergo assessment of ocular health within a year of starting long-term antimalarial drug therapy. The baseline examination should include a fundus examination of the macula to rule out any underlying disease that may interfere with the interpretation of screening tests. -Advised patient that we prefer annual screening exams however the AAO has suggested that for patients with a normal baseline exam who do not have major risk factors for toxic retinopathy, follow-up examinations may be deferred until there have been five years of exposure. -Major risk factors for toxic retinopathy include a daily dose of HCQ greater than 5 mg/kg real body weight,antimalarial use for greater than five years, the presence of renal disease, concomitant tamoxifen use, and/or the presence of macular disease. Age-related osteoporosis without current pathological fracture - Plan: XR Bone Density DEXA Axial which patient may obtain in [place] closer to home. Primary osteoarthritis - Plan: XR Hands Bilateral Ball Catchers 2 Views, XR Knees Standing Bilateral AP/ LAT Low serum vitamin D - Plan: Vitamin D, Total, 25-OH The patient indicates understanding of these issues and agrees with the plan. Return to clinic in 5 month(s) Telehealth appointments ok. Damien Dillard MD Swimming Coach Or Instructor Egg Processing Supervisor Note: To expedite correspondence this note was generated by [employer] voice recognition software. Some grammatical or spelling errors may occur using the system. documented in this encounter [facility] 12-13-2022 Miscellaneous Notes Faxed. Nika Rai Ma Letter done Migdalia Tena MD Patient calls to report that she is to serve on jury duty sometime from January 16, 2023 to March 17, 2023. Patient reports that because of lupus and arthritis she is unable to sit for extended periods of time. Patient said previously she was given a doctor's note excusing her from jury duty. Patient requesting a letter excusing her from jury duty be faxed to [phone] Attn: Leigha Mustafa. Katarzyna Askew, RN documented in this encounter [facility] 12-06-2022 Note HNO ID: [id number] Author: Mao Sweet APRN.INVESTIGATION DIVISION CAPTAIN Service: ? Author Type: Nurse Practitioner Type: Progress Notes Filed: 12/06/2022 1:49 PM Note Text: This is a 72 year old female who presents today with: Patient presents with: Acute Visit: Left ear plugged HISTORY OF PRESENT ILLNESS: Ronald Ashley is a 72 year old female. Patient presents with: Acute Visit: Left ear plugged Here in the office for left ear fullness. Refers ear feels plugged. Has had issues in the past due to wax build up. Noticed left ear pain started yesterday. Ear feels sore, pain will radiate down into the left side of neck. No fever or chills. PAST MEDICAL HISTORY: PAST MEDICAL HISTORY Diagnosis Date Aneurysm of unspecified site (HCC) 10/24 right carotid cavernous aneurysm per MRA Diverticulosis of colon (without mention of hemorrhage) Lupus (HCC) Osteoporosis 10/01/2013 Other and unspecified hyperlipidemia Unspecified essential hypertension Unspecified transient cerebral ischemia 10/24 Varicose veins of other sites PAST SURGICAL HISTORY Procedure Laterality Date COLONOSCOPY FLX DX W/COLLJ SPEC WHEN PFRMD 06/23/2007 Colonoscopy ALLERGIES Patient has no known allergies. MEDICATIONS Current Outpatient Medications Medication Sig hydrOXYchloroQUINE (PLAQUENIL) 200 mg tablet Take 1 tablet by mouth once daily. Pt is to take 1 tablet once daily per Dr. Sinclair lisinopril (ZESTRIL, PRINIVIL) 10 mg tablet Take 1 tablet by mouth once daily. predniSONE (DELTASONE) 10 mg tablet TAKE 1 TABLET DAILY for 3-5 days with flare predniSONE (DELTASONE) 20 mg tablet Take 2 tablets by mouth once daily. For 3-5 days as needed atorvastatin (LIPITOR) 40 mg tablet Take 1 tablet by mouth once daily. zvlqxuig-ksy-BW-Ca carb-vit K (ONE-A-DAY WOMEN'S 50+) 400 mcg-500 mg calcium-20 mcg tab Take 1 tablet by mouth once daily. No current facility-administered medications for this visit. FAMILY HISTORY Problem Relation Age of Onset Heart Mother Lipids Mother other (Other) Mother aneurysm Brain Heart Father Lipids Father other (Other) Father aneurysm AAA Heart Sister Lipids Sister Social History Tobacco Use Smoking status: Never Smokeless tobacco: Never Vaping Use Vaping Use: Never used Substance Use Topics Alcohol use: No Drug use: No REVIEW OF SYSTEMS GENERAL: No weight loss, malaise or fevers/chills HEENT: + Left Ear pain/Fullness NECK: Negative for lumps, goiter, pain and significant neck swelling RESPIRATORY: Negative for cough, hemoptysis, wheezing, dyspnea or shortness of breath CARDIOVASCULAR: Negative for chest pain, leg swelling, orthopnea, or palpitations GI: No nausea, vomiting, or diarrhea/constipation. No hematochezia/melena. No heartburn or reflux symptoms. : No history of dysuria, frequency or incontinence MUSCULOSKELETAL: Negative for joint pain or swelling. SKIN: Negative for lesions, rash, and itching ENDOCRINE: Negative for cold or heat intolerance, polyuria, polydipsia and goiter NEURO: No history of headaches, syncope, paralysis, seizures or tremors MOOD: Negative for depression, anxiety, or suicidal ideation. EXAM: BP 120/70 Pulse (P) 76 Resp (P) 16 Wt (P) 73 kg (161 lb) SpO2 (P) 98% BMI (P) 26.79 kg/m? PHYSICAL EXAM: General Appearance: Well appearing, alert, in no acute distress, well-hydrated, well nourished. Skin: Skin color, texture, turgor normal, no suspicious rashes or lesions. Head: Normocephalic, no masses, lesions, tenderness or abnormalities. Eyes: Anicteric sclera. Extraocular movements are intact. Ears: External ears normal, canals clear. + Right cerumen impaction noted. Left TM dull. Attempted to remove cerumen with curette which was unsuccessful. Cerumen is very hard and impacted Nose/Sinuses: Nares normal, septum midline, mucosa normal, no drainage or sinus tenderness. Oropharynx: Lips, mucosa, and tongue normal, teeth and gums normal, oropharynx normal. Neck: Supple, no adenopathy; thyroid symmetric, normal size, no bruits. Lungs: Lungs clear to auscultation. No wheezing, rhonchi, rales. Heart: RRR without murmur, gallop, or rubs. No ectopy. Extremities: No deformities, edema, skin discoloration, clubbing or cyanosis. Good capillary refill. Peripheral Pulses: Normal, Capillary refill <2secs, strong peripheral pulses, Pulses palpable. Neurologic: Gait normal. Sensation grossly intact. ASSESSMENT/PLAN: 1. Impacted cerumen of right ear - ICD9: 380.4, ICD10: H61.21 (primary diagnosis) - Use Debrox eardrops into the right ear for the next 5 days. - May return back to the office for ear lavage. - DEBROX 6.5 % EAR DROPS 2. Ear pain, left - ICD9: 388.70, ICD10: H92.02 - May use Flonase 1-2 times per day as needed. - FLUTICASONE PROPIONATE 50 MCG/ACTUATION NASAL SPRAY,SUSPENSION Follow-up in 1 week as needed Discussed treatment plan and patient voices understanding. Patient's questions an (more content not included)... [facility] 12-06-2022 Instructions Mao Sweet APRN.CNP - 12/06/2022 1:30 PM EST Start debrox ear drops, 5 drops into each ear for the next 5-7 days. Return back to the office to have ears flushed. May use Flonase nasal spray 1-2 times per day to help with ear pain. Rinse the mouth afterwards. Follow up as needed. documented in this encounter [facility] 12-06-2022 History of Present illness Narrative This is a 72 year old female who presents today with: Patient presents with: Acute Visit: Left ear plugged HISTORY OF PRESENT ILLNESS: Ronald Ashley is a 72 year old female. Patient presents with: Acute Visit: Left ear plugged Here in the office for left ear fullness. Refers ear feels plugged. Has had issues in the past due to wax build up. Noticed left ear pain started yesterday. Ear feels sore, pain will radiate down into the left side of neck. No fever or chills. PAST MEDICAL HISTORY: PAST MEDICAL HISTORY Diagnosis Date Aneurysm of unspecified site (HCC) 10/24 right carotid cavernous aneurysm per MRA Diverticulosis of colon (without mention of hemorrhage) Lupus (HCC) Osteoporosis 10/01/2013 Other and unspecified hyperlipidemia Unspecified essential hypertension Unspecified transient cerebral ischemia 10/24 Varicose veins of other sites PAST SURGICAL HISTORY Procedure Laterality Date COLONOSCOPY FLX DX W/COLLJ SPEC WHEN PFRMD 06/23/2007 Colonoscopy ALLERGIES Patient has no known allergies. MEDICATIONS Current Outpatient Medications Medication Sig hydrOXYchloroQUINE (PLAQUENIL) 200 mg tablet Take 1 tablet by mouth once daily. Pt is to take 1 tablet once daily per Dr. Sinclair lisinopril (ZESTRIL, PRINIVIL) 10 mg tablet Take 1 tablet by mouth once daily. predniSONE (DELTASONE) 10 mg tablet TAKE 1 TABLET DAILY for 3-5 days with flare predniSONE (DELTASONE) 20 mg tablet Take 2 tablets by mouth once daily. For 3-5 days as needed atorvastatin (LIPITOR) 40 mg tablet Take 1 tablet by mouth once daily. abinexdr-wik-NX-Ca carb-vit K (ONE-A-DAY WOMEN'S 50+) 400 mcg-500 mg calcium-20 mcg tab Take 1 tablet by mouth once daily. No current facility-administered medications for this visit. FAMILY HISTORY Problem Relation Age of Onset Heart Mother Lipids Mother other (Other) Mother aneurysm Brain Heart Father Lipids Father other (Other) Father aneurysm AAA Heart Sister Lipids Sister Social History Tobacco Use Smoking status: Never Smokeless tobacco: Never Vaping Use Vaping Use: Never used Substance Use Topics Alcohol use: No Drug use: No REVIEW OF SYSTEMS GENERAL: No weight loss, malaise or fevers/chills HEENT: + Left Ear pain/Fullness NECK: Negative for lumps, goiter, pain and significant neck swelling RESPIRATORY: Negative for cough, hemoptysis, wheezing, dyspnea or shortness of breath CARDIOVASCULAR: Negative for chest pain, leg swelling, orthopnea, or palpitations GI: No nausea, vomiting, or diarrhea/constipation. No hematochezia/melena. No heartburn or reflux symptoms. : No history of dysuria, frequency or incontinence MUSCULOSKELETAL: Negative for joint pain or swelling. SKIN: Negative for lesions, rash, and itching ENDOCRINE: Negative for cold or heat intolerance, polyuria, polydipsia and goiter NEURO: No history of headaches, syncope, paralysis, seizures or tremors MOOD: Negative for depression, anxiety, or suicidal ideation. EXAM: BP 120/70 Pulse (P) 76 Resp (P) 16 Wt (P) 73 kg (161 lb) SpO2 (P) 98% BMI (P) 26.79 kg/m PHYSICAL EXAM: General Appearance: Well appearing, alert, in no acute distress, well-hydrated, well nourished. Skin: Skin color, texture, turgor normal, no suspicious rashes or lesions. Head: Normocephalic, no masses, lesions, tenderness or abnormalities. Eyes: Anicteric sclera. Extraocular movements are intact. Ears: External ears normal, canals clear. + Right cerumen impaction noted. Left TM dull. Attempted to remove cerumen with curette which was unsuccessful. Cerumen is very hard and impacted Nose/Sinuses: Nares normal, septum midline, mucosa normal, no drainage or sinus tenderness. Oropharynx: Lips, mucosa, and tongue normal, teeth and gums normal, oropharynx normal. Neck: Supple, no adenopathy; thyroid symmetric, normal size, no bruits. Lungs: Lungs clear to auscultation. No wheezing, rhonchi, rales. Heart: RRR without murmur, gallop, or rubs. No ectopy. Extremities: No deformities, edema, skin discoloration, clubbing or cyanosis. Good capillary refill. Peripheral Pulses: Normal, Capillary refill <2secs, strong peripheral pulses, Pulses palpable. Neurologic: Gait normal. Sensation grossly intact. ASSESSMENT/PLAN: 1. Impacted cerumen of right ear - ICD9: 380.4, ICD10: H61.21 (primary diagnosis) - Use Debrox eardrops into the right ear for the next 5 days. - May return back to the office for ear lavage. - DEBROX 6.5 % EAR DROPS 2. Ear pain, left - ICD9: 388.70, ICD10: H92.02 - May use Flonase 1-2 times per day as needed. - FLUTICASONE PROPIONATE 50 MCG/ACTUATION NASAL SPRAY,SUSPENSION Follow-up in 1 week as needed Discussed treatment plan and patient voices understanding. Patient's questions answered appropriately. Medications and potential side effects were discussed and patient voices understanding. Mao Sweet APRN.INVESTIGATION DIVISION CAPTAIN This note was partially generated using Expo[employer]oter recognition system. Note was reviewed for accuracy. There may be minor misspellings or grammar miscues with Dragon voice recognition. Medical Decision Making: Problems: Moderate: New problem with uncertain prognosis Risk: Low: Low risk from testing/treatment Medical Decision Making Level: 3 - Low documented in this encounter [facility] 11-02-2022 History of Present illness Narrative Ronald Ashley is identified through a medication adherence outreach initiative based on pharmacy claims data from [employer] (insurer) for ROSALINDA medication(s). Patient is reviewed 11/02/22 due to medication adherence concerns with the following medications (name, strength): Lisinopril 10mg. Per data report last fill date and days supply: Last filled 09/12/22 for 30 days; due 10/17/22 Per reconcile dispense last fill date and days supply: Filled 10/13/22 for 30 days. Outcome of review/outreach: (choose outcome source and status) - Filled before Next fill date Per reconcile dispense Rebecca Ram ([employer]) documented in this encounter [facility] 10-09-2022 Miscellaneous Notes OK to refill as ordered Migdalia Tena MD Patient has been identified by name and date of : Yes Patient phones for refill(s): Requested Prescriptions Pending Prescriptions Disp Refills hydrOXYchloroQUINE (PLAQUENIL) 200 mg tablet 30 tablet 2 Sig: Take 1 tablet by mouth once daily. Pt is to take 1 tablet once daily per Dr. Sinclair Date of last office visit in primary care: 08/07/22 Future visit: 02/04/23 Last 2 Encounter Wt Readings: Date: Wt: 08/07/2022 73.5 kg (162 lb) 05/23/2022 74.5 kg (164 lb 4.8 oz) Previous labs/tests for medication: Blood Pressure: BUN (mg/dL) Date Value 08/01/2022 13 07/20/2021 14 Sodium (mmol/L) Date Value 08/01/2022 140 07/20/2021 139 Last 1 Encounter BP Readings: Date: BP: 08/07/2022 110/76 Liver Function: ALT (U/L) Date Value 08/01/2022 14 07/20/2021 10 AST (U/L) Date Value 08/01/2022 24 07/20/2021 20 Please advise. Thank you. Rebecca Britton RN documented in this encounter [facility] 09-26-2022 History of Present illness Narrative Ronald Ashley is identified through a medication adherence outreach initiative based on pharmacy claims data from [employer] (insurer) for ROSALINDA medication(s). Patient is reviewed 09/26/22 due to medication adherence concerns with the following medications (name, strength): Lisinopril 10 mg. Per data report last fill date and days supply: 08/15/22, 30 days Per reconcile dispense last fill date and days supply: 09/12/22, 30 days Any need for new prescription (I.e. out of refills on most recent prescription) YES/NO/Active: no Outcome of review/outreach: (choose outcome source and status) - Filled before Next fill date Per reconcile dispense Shweta [place] Approving student documentation and outreach above. Vivian Hall RPh PharmD BCACP documented in this encounter [facility] 09-24-2022 Miscellaneous Notes Pt calls to report that arthritis dr Naya Dillard in [place] has not received referral and pt information that was faxed previously from pcp office. Information re-faxed to: [phone]. Treasure Caraballo LPN documented in this encounter [facility] 09-18-2022 Miscellaneous Notes Call to pt notified her of message below from Provider. Verbalized understanding. Maura Lion Ma She may take OTC tylenol for the pain I also ordered a muscle relaxant, Flexeril, that she may take at bedtime Migdalia eTna MD Pt calls to report she was doing PT for sciatica pain until 08/24. Pt reports the location [place] by [address] but didn't know the name of the place. Pt reports she has been having lower back pain and PT advised her to call her pcp. Pt reports pain is a 7 and deep aching at night which makes it hard to sleep. Pt reports it is hard to get moving in the morning because of the pain also but throughout the day back is not as painful. Pt reports she has tried icing her back and that helps more than heat. Pt reports because of having lupus pcp advised pt to call office for any medication. Pt is asking what she can take or be prescribed to help with this pain. Please review and advise. Treasure Caraballo LPN documented in this encounter [facility] 09-11-2022 History of Present illness Narrative Rnoald Ashley is identified through a medication adherence outreach initiative based on pharmacy claims data from [employer] (insurer) for ROSALINDA medication(s). Patient is reviewed 09/11/22 due to medication adherence concerns with the following medications (name, strength): Lisinopril 10mg. Per data report last fill date and quantity: 08/07/22 11 days supply Per reconcile dispense: 08/15/22 30 days supply Per call to pharmacy: 08/15/22 30 days supply Contacted patient: Did not contact patient Any need for medication refills YES/NO/Active: no Outcome of review: (choose one of the options selected in excel spreadsheet) - Picked up per pharmacy Duc Purvis Associated attestation - Dorian Myers, [facility] [place] - 09/11/2022 2:08 PM EDT The patient's case was discussed with the student who saw the patient with me. Dougherty elements of history confirmed during visit. Agree with findings and plan as outlined by the student. My additions to the note are underlined. Dorian Myers, PharmD, MEd, BCPS, CDCES documented in this encounter [facility] 07-31-2022 Miscellaneous Notes Pt notified labs have been ordered and pt needs to be fasting for lab work. Addended by: XENIA WAGNER on: 07/31/2022 09:38 AM Modules accepted: Orders Orders filed, can we let the patient know? Xenia Wagner APRN.CNP Patient calls to ask if order for lipid panel has been placed. Patient reports that she has been fasting since 8 pm last night and would like to have completed today. Pended order with diagnosis for hog confinement system manager to review d/t Dr. Tena is out and fasting completed. Katarzyna Askew, RN Pt hear for labs to check colesterol. No lab orders are in. Please place order and call patient JESUS MANUEL. Thanks Patt Cavazos documented in this encounter [facility] 06-21-2022 Miscellaneous Notes Called and left a detailed voicemail notifying patient of providers message. Hospital phone number was left in case patient had any questions. Rebecca Britton, RN Can you please call the patient and let her know that we do not do cortisone injections. The prednisone was prescribed 2 tablets daily for 3-5 days. If she is still having pain then I would finish the treatment. If she is needing a joint injection she may need to see orthopedics. Mao Sweet APRN.TAISHA Pt calling to see if you would be willing to give a Cortizone shot if needed. Pt states she is going to be on her feet for a while today and concerned she may need this. Pt usually tries to stay off her feet as much as she can. Also her son is having surgery and she wants to be there with him Saturday. Pt states she did take Prednisone (2) 20 mg tablets today. Pt asking how many days should she do this. Bottle says 3 to 5 days. Please advise. Pt's Egg Processing Supervisor will no longer take her insurance. Pt states she was due to see her Egg Processing Supervisor 06-26-22 and was going to get a Cortizone injection and was contacted and told they no longer take her insurance. Pt is trying to get into another doctor but may not be till September. If you want to see pt she is willing to come in tomorrow. Please advise pt okay to leave a message. Lima Edward LPN documented in this encounter [facility] 06-18-2022 Miscellaneous Notes Information sent to Dr. Dillard's office. Referral placed. Xenia Wagner APRN.TAISHA Patient is no longer able to see Dr. Sinclair due to out of network. Sees her for Lupus and arthritis She spoke with her insurance and they gave her a physician name in [place]. Dr. Damien Dillard. Patient is asking for a referral. documented in this encounter [facility] 06-04-2022 Miscellaneous Notes Patient calls and requests a copy of x-ray results of left leg. Copy made and placed in medical records for patient to diamond picker on June 07 per request. Katarzyna Askew RN documented in this encounter [facility] 06-01-2022 Miscellaneous Notes Pt notified and voiced understanding. Nika Rai Ma XR leg ordered I can refill the prednisone and plaquenil if she needs it in between Rheumatologists, but she does need to find another Egg Processing Supervisor, as those are not medicines that I typically prescribe Migdalia Tena MD Patient calls to request an x-ray of the left leg. Patient reports that she continues to have intermittent left calf pain as described at OV on 05/23/2022. Patient reports that she is wearing support hose and utilizing can which is helping with the pain during ambulation. She also continues to use tylenol, prednisone, and ice prn. Patient also calls to let provider know that she is no longer able to see Dr. Sinclair for her Lupus because of insurance non-coverage. [employer] case packer is trying to find another food service team member for patient. Patient asking if provider would be willing to manage medications prescribed for Lupus (prednisone and hydroxychloroquine) if not able to find a food service team member on insurance plan. Please review and advise, Katarzyna Askew RN documented in this encounter [facility] 05-23-2022 History of Present illness Narrative Chief Complaint Patient presents with: Musculoskeletal Problem: left calf HPI Ronald Ashley is a 71 year old female who presents here today for leg pain. Pt c/o left calf pain off and on x 4 days, worse at night which she uses a pillow for support which helps some at night. Occ pain with walking. States her pain is just a soreness. No swelling, not hot to touch, no redness. She has been using heat, ice and icyhot on the leg. She states that she has lupus, this pain isn't any different then her usual lupus pain. Admits to getting occ muscle aches and pains with the lupus. Denies any injury to the leg, did not fly or drive any where for a long period of time. The only thing she did was go swimming Saturday with the grand kids. No hx of blood colts. She does have support hose but doesn't typically use them. She does use Prednisone 10 mg as needed for Lupus pain flare ups, did use Prednisone Saturday and Saturday. Leg feels better today Past medical history, appointments, medications, allergies reviewed. Previous Medical History PAST MEDICAL HISTORY Diagnosis Date Aneurysm of unspecified site (HCC) 10/24 right carotid cavernous aneurysm per MRA Diverticulosis of colon (without mention of hemorrhage) Lupus (HCC) Osteoporosis 10/01/2013 Other and unspecified hyperlipidemia Unspecified essential hypertension Unspecified transient cerebral ischemia 10/24 Varicose veins of other sites Previous Surgical History PAST SURGICAL HISTORY Procedure Laterality Date COLONOSCOPY FLX DX W/COLLJ SPEC WHEN PFRMD 06/23/2007 Colonoscopy Family History FAMILY HISTORY Problem Relation Age of Onset Heart Mother Lipids Mother other (Other) Mother aneurysm Brain Heart Father Lipids Father other (Other) Father aneurysm AAA Heart Sister Lipids Sister Patient Allergies ALLERGIES No Known Allergies Current Medications Current Outpatient Medications on File Prior to Visit Medication Sig predniSONE (DELTASONE) 20 mg tablet Take 2 tablets by mouth once daily. For 3-5 days as needed atorvastatin (LIPITOR) 40 mg tablet Take 1 tablet by mouth once daily. lisinopril (ZESTRIL, PRINIVIL) 10 mg tablet Take 1 tablet by mouth once daily. predniSONE (DELTASONE) 10 mg tablet TAKE 1 TABLET DAILY for 3-5 days with flare keawvast-nie-NJ-Ca carb-vit K (ONE-A-DAY WOMEN'S 50+) 400 mcg-500 mg calcium-20 mcg tab Take 1 tablet by mouth once daily. HYDROXYCHLOROQUINE 200 MG TAB Take 200 mg by mouth once daily. Pt is to take 1 tablet once daily per Dr. Sinclair No current facility-administered medications on file prior to visit. Social History Social History Tobacco Use Smoking status: Never Smoker Smokeless tobacco: Never Used Vaping Use Vaping Use: Never used Substance Use Topics Alcohol use: No Drug use: No EXAM: BP 120/72 Pulse 68 Resp 16 Wt 74.5 kg (164 lb 4.8 oz) BMI 27.34 kg/m General Appearance: Well appearing, alert, in no acute distress, well-hydrated, well nourished. and Overweight. Extremities: left leg; minimal to no swelling of calf, not hot to touch, sore on palpation medial aspect, not posterior, good ROM, neg Homans's. Health Maintenance List SHINGRIX VACCINE(1 of 2) Never done COVID-19 VACCINE(4 - Booster for Moderna series) due on 03/07/2022 COLORECTAL CANCER SCREENING due on 03/09/2022 DTAP,TDAP,TD(1 - Tdap) due on 01/24/2023 HEPATITIS C SCREENING due on 01/24/2023 INFLUENZA(1) due on 07/19/2022 DEPRESSION SCREENING due on 01/24/2023 ANNUAL PCP TEAM CHRONIC DISEASE VISIT due on 04/19/2023 BP CONTROLLED (<130/80) due on 04/19/2023 MAMMOGRAM due on 05/22/2023 DIABETES SCREEN due on 01/17/2025 LIPID SCREEN due on 01/17/2027 BONE DENSITY Completed ADVANCE DIRECTIVE DISCUSSION Completed PNEUMOCOCCAL: 65+ Completed Data reviewed None ASSESSMENT/PLAN: 1. Pain of left calf - ICD9: 729.5, ICD10: M79.662 (primary diagnosis) No signs of blood clot-testing not needed at this time Recommend monitoring pain for a few days to see if it improves as her Lupus pain typically resolves after a few days. Continue with heat, ice, stretching, icy hot, prednisone 2. Screening for colon cancer - ICD9: V76.51, ICD10: Z12.11 - FECAL OCCULT BLOOD TEST Follow up in Jul or sooner if needed. I agree with the Chief Complaint, ROS, and Past Histories independently gathered by the clinical support associate and the remaining scribed note accurately describes my personal service to the patient. Medical Decision Making: Problems: Low: Acute, uncomplicated illness or injury Risk: Moderate: Drug management Medical Decision Making Level: 3 - Low Migdalia Tena MD The documentation for this note was completed by Nika Rai Ma acting as scribe for Migdalia Tena MD. May 23, 2022 12:34 PM. Nika Rai Ma documented in this encounter [facility] 05-22-2022 Miscellaneous Notes Noted Migdalia Tena MD Protocol recommends see PCP in 4 hours, Pt was urged to got to EC or ED. Pt did not want to go, she wants to wait until appointment tomorrow with Dr Tena. Dr Tena was notified and is ok with seeing Pt tomorrow. Care plan reviewed with patient. Patient voices understanding. Advised patient that if symptoms get worse to be evaluated in Urgent Care or ER. Reason for Disposition [1] Thigh or calf pain AND [2] only 1 side AND [3] present > 1 hour (Exception: chronic unchanged pain) Answer Assessment - Initial Assessment Questions 1. ONSET: The pain started Saturday night. 2. LOCATION: The pain is located in the left calf to the buttock. 3. PAIN: How bad is the pain? (Scale 1-10; or mild, moderate, severe) - MILD (1-3): doesn't interfere with normal activities - MODERATE (4-7): interferes with normal activities (e.g., work or school) or awakens from sleep, limping - SEVERE (8-10): excruciating pain, unable to do any normal activities, unable to walk 6-7/10 she is sitting on a plastic chair with legs elevated, but states she is able to do normal activities. To touch it is tender. Pt states the pain eases when she is up moving 4. WORK OR EXERCISE: Pt denies except walking around or getting in pool. 5. CAUSE: Denies. 6. OTHER SYMPTOMS: Pt denies chest pain, back pain, breathing difficulty, swelling, rash, fever, numbness, and weakness. Pt has back pain from Lupus. 7. : Postmenopausal Protocols used: [id number] Called and left a voicemail for the Patient to call back and ask for a nurse to receive the providers message. Rebecca Britton RN Pt scheduled on PCP's schedule for 05/23/22 by PSR for leg pain, possible blood clot. Can we please call patient and get more information. Thanks, Maura Lion Ma documented in this encounter [facility] 05-22-2022 History of Present illness Narrative Radiology Service Progress Note PATIENT NAME: Ronald Ashley DATE OF SERVICE: May 22, 2022 TIME: 10:15 AM PATIENT IDENTITY VERIFICATION COMPLETED USING TWO (2) IDENTIFIERS: Name and Date of confirmed by patient verbally. FALL SCREENING: Has the patient had 2 falls in the last year or 1 fall with injury or currently using an Ambulatory Assistive Device (Walker, Cane, Wheelchair, Crutches, etc.)? No PATIENT GENDER DATA: Female. status: : No status: NO. PATIENT RELEVANT IMPLANT DATA REVIEWED: Not Applicable RADIOLOGY DEPARTMENT: Mammography PERIPHERAL IV DATA: Not applicable SIGNED BY: RT Zenaida(R) May 22, 2022 10:15 AM documented in this encounter [facility] 04-19-2022 History of Present illness Narrative Chief Complaint No chief complaint on file. HPI Ronald Ashley is a 71 year old female who presents here today for neck pain. Pt here today with c/o of flare up in neck pain. Pt notes ear pain that has radiated down into the left side of her neck. Symptoms started couple days ago. Pain rated a 4/10, but last night was an 8/10. Pain described as a hurt pain , used an ice pack and heat, feels the cold helped more with the pain in addition to Tylenol. Pt has arthritis and Lupus and has used prednisone for flares in the past. Has used both 40 mg daily for 5 days, and 10 mg daily (fom Dr Sinclair); the 40 mg regimen has been more effective. She has been doing more activity; watches her 9 month old grand child which requires more lifting. Past medical history, appointments, medications, allergies reviewed. Previous Medical History PAST MEDICAL HISTORY Diagnosis Date Aneurysm of unspecified site (HCC) 10/24 right carotid cavernous aneurysm per MRA Diverticulosis of colon (without mention of hemorrhage) Lupus (HCC) Osteoporosis 10/01/2013 Other and unspecified hyperlipidemia Unspecified essential hypertension Unspecified transient cerebral ischemia 10/24 Varicose veins of other sites Previous Surgical History PAST SURGICAL HISTORY Procedure Laterality Date COLONOSCOPY FLX DX W/COLLJ SPEC WHEN PFRMD 06/23/2007 Colonoscopy Family History FAMILY HISTORY Problem Relation Age of Onset Heart Mother Lipids Mother other (Other) Mother aneurysm Brain Heart Father Lipids Father other (Other) Father aneurysm AAA Heart Sister Lipids Sister Patient Allergies ALLERGIES No Known Allergies Current Medications Current Outpatient Medications on File Prior to Visit Medication Sig atorvastatin (LIPITOR) 40 mg tablet Take 1 tablet by mouth once daily. lisinopril (ZESTRIL, PRINIVIL) 10 mg tablet Take 1 tablet by mouth once daily. predniSONE (DELTASONE) 10 mg tablet TAKE 1 TABLET DAILY for 3-5 days with flare zquoxevh-uvo-UH-Ca carb-vit K (ONE-A-DAY WOMEN'S 50+) 400 mcg-500 mg calcium-20 mcg tab Take 1 tablet by mouth once daily. HYDROXYCHLOROQUINE 200 MG TAB Take 200 mg by mouth once daily. Pt is to take 1 tablet once daily per Dr. Sinclair No current facility-administered medications on file prior to visit. Social History Social History Tobacco Use Smoking status: Never Smoker Smokeless tobacco: Never Used Vaping Use Vaping Use: Never used Substance Use Topics Alcohol use: No Drug use: No EXAM: BP 124/74 (BP Site: Left Arm, BP Position: Sitting, BP Cuff Size: Regular Adult) Pulse 68 Resp 16 Wt 75.7 kg (166 lb 12.8 oz) BMI 27.76 kg/m General Appearance: Well appearing, alert, in no acute distress, well-hydrated, well nourished.. Ears: L ear normal. Neck: fair ROM, mild lateral tenderness on left. Lungs: Lungs clear to auscultation. No wheezing, rhonchi, rales.. Heart: RRR without murmur, gallop, or rubs. No ectopy. Health Maintenance List SHINGRIX VACCINE(1 of 2) Never done MAMMOGRAM due on 02/17/2022 COVID-19 VACCINE(4 - Booster for Moderna series) due on 03/07/2022 COLORECTAL CANCER SCREENING due on 03/09/2022 DTAP,TDAP,TD(1 - Tdap) due on 01/24/2023 HEPATITIS C SCREENING due on 01/24/2023 INFLUENZA(Season Ended) due on 07/19/2022 ANNUAL PCP TEAM CHRONIC DISEASE VISIT due on 01/24/2023 BP CONTROLLED (<130/80) due on 01/24/2023 DEPRESSION SCREENING due on 01/24/2023 DIABETES SCREEN due on 01/17/2025 LIPID SCREEN due on 01/17/2027 BONE DENSITY Completed ADVANCE DIRECTIVE DISCUSSION Completed PNEUMOCOCCAL: 65+ Completed Data reviewed None ASSESSMENT/PLAN: 1. Cervical pain - ICD9: 723.1, ICD10: M54.2 (primary diagnosis) Prednisone as ordered - PREDNISONE 20 MG TABLET 2. Essential hypertension - ICD9: 401.9, ICD10: I10 3. Lupus erythematosus, unspecified form - ICD9: 695.4, ICD10: L93.0 Follow up prn Medical Decision Making: Problems: Low: Acute, uncomplicated illness or injury Risk: Moderate: Drug management Medical Decision Making Level: 3 - Low Migdalia D Elderbrock, MD documented in this encounter [facility] 02-20-2022 Miscellaneous Notes Noted Migdalia Tena MD Spoke with pt and she wanted us to know her insurance will change as of March 18, 2022 she will have [employer] Medicare. She will call back when she gets her card. Lima Edward LPN Pt called and states the Lipitor is working good. She stared to say something else and got another call on her phone and call was dropped. Will try to reach her back. documented in this encounter [facility] Encounter for screening mammogram for breast cancer [facility] Diagnosis Pain of left calf- Primary Pain in limb Screening for colon cancer Special screening for malignant neoplasms, colon [facility] Diagnosis Pain of left calf- Primary Pain in limb [facility] Diagnosis Lupus erythematosus, unspecified form- Primary Arthritis of left shoulder region Unspecified arthropathy, shoulder region [facility] Diagnosis Mixed hyperlipidemia- Primary Lupus erythematosus, unspecified form [facility] Diagnosis Impacted cerumen of right ear- Primary Impacted cerumen Ear pain, left Otalgia, unspecified [facility]* Diagnosis Lupus (HCC)- Primary Systemic lupus erythematosus Trochanteric bursitis of left hip CMC DJD(carpometacarpal degenerative joint disease), localized primary, right Long-term use of hydroxychloroquine Age-related osteoporosis without current pathological fracture Primary osteoarthritis, unspecified site Low serum vitamin D 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 Osteomalacia, unspecified documented in this encounter [facility] note* Diagnosis Essential hypertension- Primary Unspecified essential hypertension Mixed hyperlipidemia Lupus erythematosus, unspecified form Encounter for screening for osteoporosis Special screening for osteoporosis documented in this encounter [facility] note* Diagnosis Lupus (HCC)- Primary Systemic lupus erythematosus documented in this encounter [facility] note* Diagnosis Encounter for screening mammogram for breast cancer documented in this encounter [facility] note* Diagnosis Primary osteoarthritis involving multiple joints- Primary Age-related osteoporosis without current pathological fracture Trochanteric bursitis of left hip Localized primary osteoarthritis of carpometacarpal (CMC) joint, unspecified laterality Long-term use of hydroxychloroquine documented in this encounter [facility] note* Diagnosis Essential hypertension- Primary Unspecified essential hypertension Screening for colon cancer Special screening for malignant neoplasms, colon Mixed hyperlipidemia Lupus erythematosus, unspecified form Osteoporosis, unspecified osteoporosis type, unspecified pathological fracture presence documented in this encounter [facility] note* Diagnosis Acute cystitis with hematuria- Primary Acute cystitis documented in this encounter [facility] note* Diagnosis Acute cystitis with hematuria- Primary Acute cystitis documented in this encounter [facility] note* Diagnosis Encounter for screening mammogram for breast cancer documented in this encounter [facility] note* Diagnosis Costochondritis- Primary Tietze's disease documented in this encounter [facility] for referral (narrative)* Diagnostic Procedure Only (Routine) - Closed Specialty Diagnoses / Procedures Referred By Brynn valdovinos Referred To Contact [facility] Diagnoses Encounter for screening mammogram for breast cancer Procedures MARLON SCREENING SCREENING MAMMOGRAPHY BI 2-VIEW BREAST INC CAD Migdalia Tena MD [address] [place] [address] [facility] [address] [place] [address] Referral ID Status Reason Start Date Expiration Date V isits Requested Visits Authorized [id number] Closed Auto-Generate d Referral 03/28/2022 04/27/2023 1 1 [facility] for referral (narrative)* Diagnostic Procedure Only (Routine) - Pending Review Specialty Diagnoses / Procedures Referred By Brynn valdovinos Referred To Contact XR IMAGING Diagnoses Pain of left calf Procedures XR TIBIA FIBULA 2V AP/LAT LEFT RADIOLOGIC EXAMINATION TIBIA & FIBULA 2 VIEWS Migdalia Tena MD [address] [place] [address] Xr Imaging Referral ID Status Reason Start Date Expiration Date Visits Requested Visits Authorized [id number] Pending Review Auto-Generat ed Referral 06/01/2022 07/01/2023 1 1 [facility] for referral (narrative)* Diagnostic Procedure Only (Routine) - Pending Review Specialty Diagnoses / Procedures Referred By Brynn valdovinos Referred To Contact [facility] Diagnoses Encounter for screening mammogram for breast cancer Procedures MARLON SCREENING SCREENING MAMMOGRAPHY BI 2-VIEW BREAST INC CAD Migdalia Tena MD [address] [place] [address] [facility] [address] [place] [address] Referral ID Status Reason Start Date Expiration Date Visits Requested Visits Authorized [id number] Pending Review Auto-Generat ed Referral 06/26/2023 07/25/2024 1 1 T [facility] for referral (narrative)* Diagnostic Procedure Only (Routine) - Closed Specialty Diagnoses / Procedures Referred By Brynn valdovinos Referred To Contact [facility] IM[facility] Diagnoses Encounter for screening mammogram for breast cancer Procedures MARLON SCREENING SCREENING MAMMOGRAPHY BI 2-VIEW BREAST INC Migdalia Patel MD [address] [place] [address] [facility] [address] [place] [address] Referral ID Status Reason Start Date Expiration Date V isits Requested Visits Authorized [id number] Closed Auto-Generate d Referral 06/26/2023 07/25/2024 1 1 [facility] for visit Narrative* Diagnostic Procedure Only (Routine) - Closed Specialty Diagnoses / Procedures Referred By Contac t Referred To Contact BR IMAGING Diagnoses Encounter for screening mammogram for breast cancer Procedures MARLON SCREENING SCREENING MAMMOGRAPHY BI 2-VIEW BREAST INC Migdalia Patel MD [address] [place] [address] [facility] [address] [place] [address] Referral ID Status Reason Start Date Expiration Date V isits Requested Visits Authorized [id number] Closed Auto-Generate d Referral 03/28/2022 04/27/2023 1 1 [facility] Diagnostic Procedure Only (Routine) - Closed Specialty Diagnoses / Procedures Referred By Contac t Referred To Contact BR IMAGING Diagnoses Encounter for screening mammogram for breast cancer Procedures MARLON SCREENING SCREENING MAMMOGRAPHY BI 2-VIEW BREAST INC Migdalia Patel MD [address] [place] [address] [facility] [address] [place] [address] Referral ID Status Reason Start Date Expiration Date V isits Requested Visits Authorized [id number] Closed Auto-Generate d Referral 06/26/2023 07/25/2024 1 1 [facility] Reason for Referral Specialty Diagnoses / Procedures Referred By Contac t Referred To Contact Rheumatology Diagnoses Lupus erythematosus, unspecified form Arthritis of left shoulder region Procedures CONSULT TO RHEUM/IMMUN DISEASE OFFICE/OUTPATIENT [facility] 60-74 MINUTES Xenia Wagner APRN.INVE[employer]IGATION DIV[employer]TAIN [address] [place] [address] Referral ID Status Reason Start Date Expiration Date Visits Requested Visits Authorized [id number] Authorized PCP Requested Referral 06/18/2022 06/18/2023 1 1 Specialty Diagnoses / Procedures Referred By Contac t Referred To Contact Radiology Diagnoses Age-related osteoporosis without current pathological fracture Procedures XR Bone Density DEXA Axial Damien Dillard MD [address] [place] [address] Referral ID Status Reason Start Date Expiration Date Visits Re quested Visits Authorized [id number] Closed 01/07/2023 01/07/2024 1 1 Summary Purpose Family History No Family History Records FoundNo Family History Records FoundNo Family History Records Found Advance Directives No Advanced Directives Records FoundNo Advanced Directives Records FoundNo Advanced Directives Records Found Additional Source Comments Source Comments (unrecognize d section and content) In the event this informatio n is protected by the Federal Confidentiality of Alcohol and Drug Abuse Patient Records regulations: The Federal rules restrict any use of the information to criminally investigate or prosecute any alcohol or drug abuse patient.[facility] the event this information is protected by the Federal Confidentiality of Alcohol and Drug Abuse Patient Records regulations: The Federal rules restrict any use of the information to criminally investigate or prosecute any alcohol or drug abuse patient.[facility] the event this information is protected by the Federal Confidentiality of Alcohol and Drug Abuse Patient Records regulations: The Federal rules restrict any use of the information to criminally investigate or prosecute any alcohol or drug abuse patient.[facility] the event this information is protected by the Federal Confidentiality of Alcohol and Drug Abuse Patient Records regulations: The Federal rules restrict any use of the information to criminally investigate or prosecute any alcohol or drug abuse patient.[facility] the event this information is protected by the Federal Confidentiality of Alcohol and Drug Abuse Patient Records regulations: The Federal rules restrict any use of the information to criminally investigate or prosecute any alcohol or drug abuse patient.[facility] the event this information is protected by the Federal Confidentiality of Alcohol and Drug Abuse Patient Records regulations: The Federal rules restrict any use of the information to criminally investigate or prosecute any alcohol or drug abuse patient.[facility] the event this information is protected by the Federal Confidentiality of Alcohol and Drug Abuse Patient Records regulations: The Federal rules restrict any use of the information to criminally investigate or prosecute any alcohol or drug abuse patient.[facility] the event this information is protected by the Federal Confidentiality of Alcohol and Drug Abuse Patient Records regulations: The Federal rules restrict any use of the information to criminally investigate or prosecute any alcohol or drug abuse patient.[facility] the event this information is protected by the Federal Confidentiality of Alcohol and Drug Abuse Patient Records regulations: The Federal rules restrict any use of the information to criminally investigate or prosecute any alcohol or drug abuse patient.[facility] the event this information is protected by the Federal Confidentiality of Alcohol and Drug Abuse Patient Records regulations: The Federal rules restrict any use of the information to criminally investigate or prosecute any alcohol or drug abuse patient.[facility] the event this information is protected by the Federal Confidentiality of Alcohol and Drug Abuse Patient Records regulations: The Federal rules restrict any use of the information to criminally investigate or prosecute any alcohol or drug abuse patient.[facility] the event this information is protected by the Federal Confidentiality of Alcohol and Drug Abuse Patient Records regulations: The Federal rules restrict any use of the information to criminally investigate or prosecute any alcohol or drug abuse patient.[facility] the event this information is protected by the Federal Confidentiality of Alcohol and Drug Abuse Patient Records regulations: The Federal rules restrict any use of the information to criminally investigate or prosecute any alcohol or drug abuse patient.[facility] the event this information is protected by the Federal Confidentiality of Alcohol and Drug Abuse Patient Records regulations: The Federal rules restrict any use of the information to criminally investigate or prosecute any alcohol or drug abuse patient.[facility] the event this information is protected by the Federal Confidentiality of Alcohol and Drug Abuse Patient Records regulations: The Federal rules restrict any use of the information to criminally investigate or prosecute any alcohol or drug abuse patient.[facility] the event this information is protected by the Federal Confidentiality of Alcohol and Drug Abuse Patient Records regulations: The Federal rules restrict any use of the information to criminally investigate or prosecute any alcohol or drug abuse patient.[facility] the event this information is protected by the Federal Confidentiality of Alcohol and Drug Abuse Patient Records regulations: The Federal rules restrict any use of the information to criminally investigate or prosecute any alcohol or drug abuse patient.[facility] the event this information is protected by the Federal Confidentiality of Alcohol and Drug Abuse Patient Records regulations: The Federal rules restrict any use of the information to criminally investigate or prosecute any alcohol or drug abuse patient.[facility] the event this information is protected by the Federal Confidentiality of Alcohol and Drug Abuse Patient Records regulations: The Federal rules restrict any use of the information to criminally investigate or prosecute any alcohol or drug abuse patient.[facility] the event this information is protected by the Federal Confidentiality of Alcohol and Drug Abuse Patient Records regulations: The Federal rules restrict any use of the information to criminally investigate or prosecute any alcohol or drug abuse patient.[facility] the event this information is protected by the Federal Confidentiality of Alcohol and Drug Abuse Patient Records regulations: The Federal rules restrict any use of the information to criminally investigate or prosecute any alcohol or drug abuse patient.[facility] the event this information is protected by the Federal Confidentiality of Alcohol and Drug Abuse Patient Records regulations: The Federal rules restrict any use of the information to criminally investigate or prosecute any alcohol or drug abuse patient.[facility] the event this information is protected by the Federal Confidentiality of Alcohol and Drug Abuse Patient Records regulations: The Federal rules restrict any use of the information to criminally investigate or prosecute any alcohol or drug abuse patient.[facility] the event this information is protected by the Federal Confidentiality of Alcohol and Drug Abuse Patient Records regulations: The Federal rules restrict any use of the information to criminally investigate or prosecute any alcohol or drug abuse patient.[facility] the event this information is protected by the Federal Confidentiality of Alcohol and Drug Abuse Patient Records regulations: The Federal rules restrict any use of the information to criminally investigate or prosecute any alcohol or drug abuse patient.[facility] the event this information is protected by the Federal Confidentiality of Alcohol and Drug Abuse Patient Records regulations: The Federal rules restrict any use of the information to criminally investigate or prosecute any alcohol or drug abuse patient.[facility] the event this information is protected by the Federal Confidentiality of Alcohol and Drug Abuse Patient Records regulations: The Federal rules restrict any use of the information to criminally investigate or prosecute any alcohol or drug abuse patient.[facility] the event this information is protected by the Federal Confidentiality of Alcohol and Drug Abuse Patient Records regulations: The Federal rules restrict any use of the information to criminally investigate or prosecute any alcohol or drug abuse patient.[facility] Reason for Visit (unrecogniz ed section and content) Reason Comments Neck Pain Specialty Diagnoses / Procedures Referred By Contsatya t Referred To Contact Family Practice / FAMILY MEDICINE Diagnoses Neck flare up Procedures 4C EST Self Migdalia Tena MD [address] [place] [id number] Referral ID Status Reason Start Date Expiration Date Visits Re quested Visits Authorized [id number] Denied 04/19/2022 07/18/2022 1 0 Reason Comments Nurse Triage Call Reason Comments Musculoskeletal Problem left calf Reason Comments Patient Question Reason Comments Results Reason Comments Referral Request Reason Comments cortizone injection Reason Comments Orders Reason Onset Date Comments [facility] Health Visit 09/11/2022 Medication A dherence Outreach Reason Comments Back Pain Reason Comments Referral Request Reason Onset Date Comments Allied Health Visit 09/26/2022 Medication A dherence Outreach Reason Onset Date Comments Refill Request 10/09/2022 Reason Onset Date Comments Allied Health Visit 11/02/2022 Medication A dherence Outreach Reason Comments Acute Visit Left ear plugged Reason Comments Letter for Jury Duty Specialty Diagnoses / Procedures Referred By Contsatya t Referred To Contact Rheumatology Diagnoses Lupus (HCC) Migdalia Tena MD [address] [facility] [address] [place] [address] Damien Dillard MD [address] [place] [address] Referral ID Status Reason Start Date Expiration Date V isits Requested Visits Authorized [id number] Pending Review 10/17/2022 10/17/2023 1 1 Reason Comments 6 Month Exam Reason Onset Date Comments Medication Refill 02/05/2023 Reason Comments Results MRA Brain Reason Comments Acute Visit frequency x 3 days Reason Comments Results Urine Culture Reason Comments Occasional chest discomfort with deep br eath Reason Comments mid sternal pain with inhalation inhalat ion Care Teams (unrecognized sec tion and content) Foamite Mixer Relationship Specialty Start Date End Date Migdalia Tena MD [address] [place] [address] PCP - General 03/21/10 Foamite Mixer Relationship Specialty Start Date End Date Migdalia Tena MD [address] [place] [address] PCP - General 03/21/10 Foamite Mixer Relationship Specialty Start Date End Date Migdalia Tena MD [address] [place] [address] PCP - General 03/21/10 Foamite Mixer Relationship Specialty Start Date End Date Migdalia Tena MD [address] [place] [address] PCP - General 03/21/10 Foamite Mixer Relationship Specialty Start Date End Date Migdalia Tena MD [address] [place] [address] PCP - General 03/21/10 Foamite Mixer Relationship Specialty Start Date End Date Migdalia Tena MD [address] [place] [address] PCP - General 03/21/10 Foamite Mixer Relationship Specialty Start Date End Date Migdalia Tena MD [address] [place] [address] PCP - General 03/21/10 Foamite Mixer Relationship Specialty Start Date End Date Migdalia Tena MD [address] [facility] [address] [place] [address], [place] [address] PCP - General Family Medicine 01/07/23 Foamite Mixer Relationship Specialty Start Date End Date Migdalia Tena MD [address] [facility] [address] [place] [address], [place] [address] PCP - General Family Medicine 01/07/23 Foamite Mixer Relationship Specialty Start Date End Date Migdalia Tena MD [address] [facility] [place] [address] PCP - General 03/21/10 Foamite Mixer Relationship Specialty Start Date End Date Migdalia Tena MD [address] [facility] [address] [place] [id number] PCP - General Family Medicine 01/07/23 Foamite Mixer Relationship Specialty Start Date End Date Migdalia Tena MD [address] [place] [address] PCP - General 03/21/10 Foamite Mixer Relationship Specialty Start Date End Date Migdalia Tena MD [address] [facility] [address] [place] [id number] PCP - General Family Medicine 01/07/23 Foamite Mixer Relationship Specialty Start Date End Date Migdalia Tena MD [address] [facility] [place] [address] PCP - General 03/21/10 Foamite Mixer Relationship Specialty Start Date End Date Migdalia Tena MD [address] [facility] [address] PCP - General 03/21/10 Foamite Mixer Relationship Specialty Start Date End Date Migdalia Tena MD [address] [place], [place] [id number] PCP - General 03/21/10 Foamite Mixer Relationship Specialty Start Date End Date Migdalia Tena MD [address] [place], [place] [id number] PCP - General 03/21/10 Foamite Mixer Relationship Specialty Start Date End Date Migdalia Tena MD [address] [place], [place] [address] PCP - General 03/21/10 Foamite Mixer Relationship Specialty Start Date End Date Migdalia Tena MD [address] [place], [place] [id number] PCP General 03/21/10 Foamite Mixer Relationship Specialty Start Date End Date Migdalia Tena MD [address] [place], [place] [id number] PCP General 03/21/10 INFORMATION SOURCE (unrecogn ized section and content) DATE CREATED AUTHOR AUTHOR'S ORGANIZ ATION 07/13/2023 [facility] DATE CREATED AUTHOR AUTHOR'S ORGANIZ ATION 11/29/2023 [facility] FOR RECORDS PERTAINING TO PATIENTS WHO ARE OR HAVE BEEN ENROLLED IN A CHEMICAL DEPENDENCY/SUBSTANCEABUSE PROGRAM, SOME INFORMATION MAY BE OMITTED. This clinical summary was aggregated from multiple sources. Caution should be exercised in using it in the provision of clinical care. This summary normalizes information from multiple sources, and as a consequence, information in this document may materially change the coding, format and clinical context of patient data. In addition, data may be omitted in some cases. CLINICAL DECISIONS SHOULD BE BASED ON THE PRIMARY CLINICAL RECORDS. [facility] [employer] [facility]. provides no warranty or guarantee of the accuracy or completeness of information in this document.
== END | disposition home or self-care (01) ==
LOC: CVS 09:51
PROVIDERS: PCP Family Medicine; Referring Provider Nurse Practitioner Family; Visit Provider Nurse Practitioner Family
DX: M79.662 Pain in left lower leg (principal)
CPT/HCPCS: 93971